=== PATIENT | female | born 1945 | race Caucasian/White ===

== ENCOUNTER → 2017-07-10 11:00 | Outpatient (CLI) | payer MEDICARE, OTHER, SELFPAY ==
--- NOTE | 2017-07-10 11:02 | XR_ITS ---
XR DEXA axial skeleton HISTORY: ITS.REASON: OSTEOPOROSIS ORDERING PHYSICIAN: Berna Jorgensen PATIENT AGE: 72 years COMPARISON: 06/27/2015 FINDINGS: The BMD measured at the Total left femoral neck is 0.610 g/cm squared with a T score of -3.2. This is considered Osteoporotic according to the World Health Organization criteria. Fracture risk is High. Treatment is advised. L1-L4 density has T score -0.4. The L-spine density is decreased by 4% and the hip density has decreased by 5% compared to the previous exam IMPRESSION: Osteoporosis with high fracture risk. Recommend treatment and follow-up exam June 2018
[2017-07-10 11:50] LABS: Basophils % 0.3 % (0.1-2.0); Eosinophils # 0.5 K/mm3 (0.0-0.4); Eosinophils % 4.3 % (0.1-12.0); Hematocrit 29.2 % (37.0-47.0); Hemoglobin 9.8 g/dL (12.2-16.2); Lymphocytes # 1.2 K/mm3 (0.7-4.5); Lymphocytes % 9.5 K/mm3 (10-50); Mean Corpuscular HGB Conc 33.5 g/dL (31.8-35.4); Mean Corpuscular Hemoglobin 32.2 pg (27.0-31.2); Mean Corpuscular Volume 95.9 fl (81-99); Mean Platelet Volume 7.2 fl (7.4-10.4); Monocytes # 0.5 K/mm3 (0.1-1.0); Monocytes % 3.8 % (1.7-9.3); Neutrophils % 82.1 % (37.0-80.0); Platelet Count 416 K/mm3 (142-424); Red Blood Count 3.05 M/mm3 (4.20-5.40); Red Cell Distribution Width 16.4 % (11.5-17.5); White Blood Count 12.2 K/mm3 (4.8-10.8)
[2017-07-10 13:23] LABS: Alanine Aminotransferase 11 U/L (12-78); Albumin Level 3.6 gm/dL (3.4-5.0); Albumin/Globulin Ratio 1.3 (1.1-1.8); Alkaline Phosphatase 115 U/L (46-116); Anion Gap 14.2 mEq/L (5-15); Aspartate Amino Transferase 10 U/L (15-37); Bilirubin,Total 0.3 mg/dL (0.2-1.0); Blood Urea Nitrogen 27 mg/dL (7-18); Calcium 8.9 mg/dL (8.5-10.1); Carbon Dioxide 27 mmol/L (21.0-32.0); Chloride 104 mmol/L (98-107); Chol/HDL Ratio 5.4 (1-3.5); Cholesterol 198 mg/dL (140-200); Estimated Glomerular Filt Rate 37 ml/min (>60); GFR (African American) 45 ML/MIN (>60); Globulin 2.7 gm/dl (1.3-3.2); Glucose 100 mg/dL (74-106); HDL Cholesterol 37 mg/dL (29-89); LDL Cholesterol 122 mg/dL (0-130); Potassium 4.2 mmoL/L (3.5-5.1); Sodium 141 mmol/L (136-145); Total Protein,Serum 6.3 gm/dL (6.4-8.2); Triglycerides 197 mg/dL (30-200); VLDL Cholesterol 39 mg/dL (0-40)
[2017-07-11 20:13] LABS: Vitamin D 25 Hydroxy 29.4 ng/mL (30.0-100.0)
== END ==
PROVIDERS: Family Provider Internal Medicine Adolescent Medicine; PCP Internal Medicine Adolescent Medicine; Visit Provider Nurse Practitioner Family
DX: M81.0 Age-related osteoporosis without current pathological fracture (principal); Z13.820 Encounter for screening for osteoporosis; E55.9 Vitamin D deficiency, unspecified; D64.9 Anemia, unspecified; I10 Essential (primary) hypertension
CPT/HCPCS: 36415; 77080; 80053; 80061; 82652; 85025

== ENCOUNTER → 2017-08-14 09:25 | Outpatient (CLI) | payer MEDICARE, OTHER, SELFPAY ==
--- NOTE | 2017-08-14 09:28 | XR_ITS ---
XR wrist RT min 3V HISTORY follow-up fracture ITS.REASON: RT distal radius fx ORDERING PHYSICIAN: Valentín Sheffield MD PATIENT AGE: 72 years Comparison: 07/12/2017 FINDINGS: There is a splint in place. There is a healing transverse fracture involving the distal radius with mild dorsal angulation of the distal fracture fragment. There is some osteosclerosis at the fracture site with callus formation dorsally. IMPRESSION: Healing nondisplaced fracture distal radius
--- NOTE | 2017-08-14 09:28 | XR_ITS ---
XR femur LT 2V CLINICAL INDICATION: Follow-up fracture ITS.REASON: FX medial condyle of femur ORDERING PHYSICIAN: Valentín Sheffield MD PATIENT AGE: 72 years Comparison: 07/12/2017 FINDINGS: There is a knee brace in place. There is an oblique fracture of the distal femur exiting at the central aspect of the lateral femoral condyle at the intercondylar region. The hip and proximal aspect of the femur have an unremarkable appearance IMPRESSION: Nondisplaced oblique fracture of the distal fibula at the lateral femoral condylar region not significantly changed
--- NOTE | 2017-08-14 10:31 | XR_ITS ---
XR knee LT 2V HISTORY: Follow-up fracture ITS.REASON: FRACTURE/CALL DR. SHEFFIELD BEFORE PATIENT IS OFF TAB ORDERING PHYSICIAN: Valentín Sheffield MD PATIENT AGE: 72 years COMPARISON: 07/12/2017 FINDINGS: Oblique fracture of the distal femur involving the base of the lateral femoral condyle the exiting at the intercondylar region is once again noted. No significant displacement. No significant change. Suprapatellar effusion is noted. IMPRESSION: Overall no change of the fracture of the lateral femoral condyle extending into the intercondylar region
== END ==
PROVIDERS: PCP Internal Medicine Adolescent Medicine; Visit Provider Orthopaedic Surgery
DX: S72.43 Fracture of medial condyle of femur (principal); S52.501A Unspecified fracture of the lower end of right radius, initial encounter for closed fracture
CPT/HCPCS: 73110; 73552; 73560

== ENCOUNTER → 2017-08-29 10:17 | Outpatient (CLI) | payer MEDICARE, OTHER, SELFPAY ==
--- NOTE | 2017-08-29 10:20 | XR_ITS ---
XR knee LT 2V HISTORY: Follow-up fracture ITS.REASON: LT MEDIAL CONDYLE FEMUR FX ORDERING PHYSICIAN: Valentín Sheffield MD PATIENT AGE: 72 years COMPARISON: None COMPARISON: 07/12/2017, 08/14/2017 FINDINGS: No change in the lateral femoral condylar fracture with extension into the intercondylar region.. There remains lucency in the intercondylar region. There is good alignment. IMPRESSION: Overall no change in the healing distal femur fracture involving the lateral femoral condyle extending into the intercondylar region
--- NOTE | 2017-08-29 10:20 | XR_ITS ---
XR wrist RT 2V HISTORY follow-up fracture ITS.REASON: RT WRIST FX ORDERING PHYSICIAN: Valentín Sheffield MD PATIENT AGE: 72 years Comparison: 08/14/2017 FINDINGS: A splint has been removed. There is a healing distal radial fracture with good alignment. There is some minimal dorsal angulation of the distal fracture fragment. Osteoarthritic changes involve the first metacarpocarpal joint. IMPRESSION: Healing distal radial fracture with good alignment and mild dorsal angulation of the distal fracture fragment
== END ==
PROVIDERS: PCP Internal Medicine Adolescent Medicine; Visit Provider Orthopaedic Surgery
DX: S72.43 Fracture of medial condyle of femur (principal); S52.501A Unspecified fracture of the lower end of right radius, initial encounter for closed fracture
CPT/HCPCS: 73100; 73560

== ENCOUNTER → 2017-09-11 09:37 | Outpatient (CLI) | payer MEDICARE, OTHER, SELFPAY ==
--- NOTE | 2017-09-11 09:39 | XR_ITS ---
XR knee LT 2V Ordering Physician: Valentín Sheffield MD Patient Age: 72 years: Female HISTORY: ITS.REASON: AP LATERAL VIEWS INCLUDE Fall in June with persistent knee pain TECHNIQUE: 2 view left knee COMPARISON : 08/29/2017 07/12/2017, 08/14/2017 FINDINGS: Stable healing distal femoral fracture. No change along the vague transverse fracture through the base of lateral femoral condylar fracture with extension into intercondylar region... Progressing healing at this fracture with slight increased density most evident at lateral. Stable position. There is also an oblique fracture through the medial aspect distal femoral metaphysis with this is not evident on plain film was seen on June 2007 extending to the notch IMPRESSION: Overall no change in the healing distal femur fracture involving the lateral femoral condyle extending tothe intercondylar region
== END ==
PROVIDERS: PCP Internal Medicine Adolescent Medicine; Visit Provider Orthopaedic Surgery
DX: S72.43 Fracture of medial condyle of femur (principal)
CPT/HCPCS: 73560

== ENCOUNTER → 2017-10-28 09:24 | Outpatient (CLI) | payer MEDICARE, OTHER, SELFPAY ==
--- NOTE | 2017-10-28 09:29 | XR_ITS ---
XR knee LT 2V HISTORY: Follow-up fracture ITS.REASON: LT MEDIAL CONDYLE FEMUR FX ORDERING PHYSICIAN: Valentín Sheffield MD PATIENT AGE: 72 years COMPARISON: 09/11/2017 FINDINGS: AP and lateral views are obtained demonstrates impaction of the lateral aspect of the distal femur at the base of the femoral condyle. The intercondylar fracture line is less apparent. There is generalized osteopenia. Vascular calcifications are also noted. IMPRESSION: Healing distal femur fracture nondisplaced
== END ==
PROVIDERS: PCP Internal Medicine Adolescent Medicine; Visit Provider Orthopaedic Surgery
DX: S72.43 Fracture of medial condyle of femur (principal)
CPT/HCPCS: 73560

== ENCOUNTER → 2017-12-10 09:23 | Outpatient (CLI) | payer MEDICARE, OTHER, SELFPAY ==
--- NOTE | 2017-12-10 09:27 | XR_ITS ---
XR wrist RT min 3V HISTORY follow-up fracture ITS.REASON: follow up on right nondisplaced fx ORDERING PHYSICIAN: Barrett Lorenzo MD PATIENT AGE: 72 years Comparison: 08/14/2017 FINDINGS: There is a band of increased density of the distal radius representing a healing fracture with mild dorsal angulation of the distal fracture fragment and the fracture line is less apparent than compared to the previous exam There is generalized osteopenia with osteoarthritic changes of the first metacarpal carpal joint. IMPRESSION: Healing nondisplaced distal radial fracture
--- NOTE | 2017-12-10 09:27 | XR_ITS ---
XR femur LT 2V CLINICAL INDICATION: Left femur pain, follow-up condylar fracture ITS.REASON: follow up ORDERING PHYSICIAN: Barrett Lorenzo MD PATIENT AGE: 72 years Comparison: 08/14/2017 FINDINGS: Lateral femoral condylar fracture line is less apparent. There is some deformity of the distal femur laterally from the old fracture as well as persistent cortical irregularity of the intercondylar region.. There is good alignment. IMPRESSION: Healing lateral femoral condylar fracture
[2017-12-10 10:24] LABS: Basophils # 0.1 K/mm3 (0-0.2); Basophils % 0.5 % (0.1-2.0); Eosinophils # 0.4 K/mm3 (0.0-0.4); Eosinophils % 3.6 % (0.1-12.0); Hematocrit 34.5 % (37.0-47.0); Hemoglobin 9.9 g/dL (12.2-16.2); Lymphocytes # 1.1 K/mm3 (0.7-4.5); Lymphocytes % 9.7 K/mm3 (10-50); Mean Corpuscular HGB Conc 28.6 g/dL (31.8-35.4); Mean Corpuscular Hemoglobin 28.2 pg (27.0-31.2); Mean Corpuscular Volume 98.7 fl (81-99); Mean Platelet Volume 7.2 fl (7.4-10.4); Monocytes # 0.4 K/mm3 (0.1-1.0); Monocytes % 3.6 % (1.7-9.3); Neutrophils # 9.3 K/mm3 (1.8-7.8); Neutrophils % 82.5 % (37.0-80.0); Platelet Count 463 K/mm3 (142-424); Red Cell Distribution Width 16.6 % (11.5-17.5); White Blood Count 11.3 K/mm3 (4.8-10.8)
[2017-12-10 11:43] LABS: Alanine Aminotransferase 11 U/L (12-78); Albumin Level 3.5 gm/dL (3.4-5.0); Albumin/Globulin Ratio 1.3 (1.1-1.8); Alkaline Phosphatase 100 U/L (46-116); Anion Gap 15.9 mEq/L (5-15); Aspartate Amino Transferase 8 U/L (15-37); Bilirubin,Total 0.4 mg/dL (0.2-1.0); Blood Urea Nitrogen 30 mg/dL (7-18); Calcium 8.8 mg/dL (8.5-10.1); Carbon Dioxide 25 mmol/L (21.0-32.0); Chloride 105 mmol/L (98-107); Creatinine,Serum 1.39 mg/dL (0.55-1.02); Estimated Glomerular Filt Rate 37 ml/min (>60); GFR (African American) 45 ML/MIN (>60); Globulin 2.6 gm/dl (1.3-3.2); Glucose 88 mg/dL (74-106); Potassium 3.9 mmoL/L (3.5-5.1); Sodium 142 mmol/L (136-145); Total Protein,Serum 6.1 gm/dL (6.4-8.2); Uric Acid 2.2 mg/dL (2.6-7.2)
[2017-12-12 06:43] LABS: Vitamin D 25 Hydroxy 36.1 ng/mL (30.0-100.0)
== END ==
PROVIDERS: Nurse Practitioner Family; PCP Internal Medicine Adolescent Medicine; Visit Provider Orthopaedic Surgery
DX: S52.501A Unspecified fracture of the lower end of right radius, initial encounter for closed fracture (principal); S72.43 Fracture of medial condyle of femur; D64.9 Anemia, unspecified; N20.0 Calculus of kidney; I10 Essential (primary) hypertension; E55.9 Vitamin D deficiency, unspecified
CPT/HCPCS: 36415; 73110; 73552; 80053; 82652; 84550; 85025

== ENCOUNTER → 2018-06-04 11:46 | Outpatient (CLI) | payer MEDICARE, OTHER, SELFPAY ==
[2018-06-04 12:38] LABS: Basophils # 0.1 K/mm3 (0-0.2); Basophils % 0.6 % (0.1-2.0); Eosinophils # 0.2 K/mm3 (0.0-0.4); Eosinophils % 1.8 % (0.1-12.0); Hematocrit 34.5 % (37.0-47.0); Hemoglobin 10.2 g/dL (12.2-16.2); Lymphocytes # 1.4 K/mm3 (0.7-4.5); Lymphocytes % 13.4 % (10-50); Mean Corpuscular HGB Conc 29.4 g/dL (31.8-35.4); Mean Corpuscular Hemoglobin 27.6 pg (27.0-31.2); Mean Corpuscular Volume 93.7 fl (81-99); Monocytes # 0.4 K/mm3 (0.1-1.0); Monocytes % 4.1 % (1.7-9.3); Neutrophils # 8.4 K/mm3 (1.8-7.8); Platelet Count 464 K/mm3 (142-424); Red Blood Count 3.69 M/mm3 (4.20-5.40); Red Cell Distribution Width 14.6 % (11.5-17.5); White Blood Count 10.6 K/mm3 (4.8-10.8)
[2018-06-04 15:25] LABS: Alanine Aminotransferase 14 U/L (12-78); Albumin Level 3.8 gm/dL (3.4-5.0); Albumin/Globulin Ratio 1.3 (1.1-1.8); Alkaline Phosphatase 106 U/L (46-116); Anion Gap 13.8 mEq/L (5-15); Aspartate Amino Transferase 6 U/L (15-37); Bilirubin,Total 0.2 mg/dL (0.2-1.0); Blood Urea Nitrogen 22 mg/dL (7-18); Calcium 8.7 mg/dL (8.5-10.1); Carbon Dioxide 28 mmol/L (21.0-32.0); Chloride 103 mmol/L (98-107); Creatinine,Serum 1.36 mg/dL (0.55-1.02); Estimated Glomerular Filt Rate 38 ml/min (>60); GFR (African American) 46 ML/MIN (>60); Globulin 2.9 gm/dl (1.3-3.2); Glucose 99 mg/dL (74-106); Potassium 3.8 mmoL/L (3.5-5.1); Sodium 141 mmol/L (136-145); Total Protein,Serum 6.7 gm/dL (6.4-8.2); Uric Acid 4.1 mg/dL (2.6-7.2)
[2018-06-05 23:13] LABS: Vitamin D 25 Hydroxy 27.8 ng/mL (30.0-100.0)
== END ==
PROVIDERS: Visit Provider Nurse Practitioner Family
DX: D64.9 Anemia, unspecified (principal); I10 Essential (primary) hypertension; N20.0 Calculus of kidney; E55.9 Vitamin D deficiency, unspecified
CPT/HCPCS: 36415; 80053; 82652; 84550; 85025

== ENCOUNTER → 2018-08-24 10:24 | Outpatient (CLI) | payer MEDICARE, OTHER, SELFPAY ==
[2018-08-24 12:08] LABS: Blood Urea Nitrogen 19 mg/dL (7-18); Creatinine,Serum 1.42 mg/dL (0.55-1.02); Estimated Glomerular Filt Rate 36 ml/min (>60); GFR (African American) 44 ML/MIN (>60)
== END ==
PROVIDERS: Visit Provider Thoracic Surgery (Cardiothoracic Vascular Surgery)
DX: I71.2 Thoracic aortic aneurysm, without rupture (principal)
CPT/HCPCS: 36415; 82565; 84520

== ENCOUNTER → 2018-08-27 10:09 | Outpatient (CLI) | payer MEDICARE, OTHER, SELFPAY ==
--- NOTE | 2018-08-27 10:38 | CT_ITS ---
CT angio chest COMPARISON: CT scan the chest without IV contrast 01/10/2017 HISTORY: Follow-up Evaluation of known thoracic aortic aneurysm TECHNIQUE: Multiple axial scans obtained from the thoracic inlet the hemidiaphragms after rapid injection of 100 cc of Optiray 350. Sagittal and coronal reformats were evaluated as well. FINDINGS: There is excellent vascular opacification. There is mild diffuse aneurysmal dilatation of the thoracic aorta, primarily aortic arch with the aortic arch measurement 4.5 cm in diameter unchanged the previous exam. The descending thoracic aorta at the level of the vinny measures 4.7 cm in diameter stable and unchanged from previous exam. There is no abnormal superior mediastinal or hilar lymphadenopathy. Lung windows show clear lung dillard bilaterally. There is minimal scarring or atelectasis at both lung bases. There is a stable 3 mm noncalcified nodule left lower lobe. There is a stable hypodense nodule of the left adrenal gland the CT number suggesting that it represents a lipoma. There is mild multilevel degenerative changes of the thoracic spine. There is no pleural fluid. There is mild generalized cardio megaly and overall cardiac size is stable and unchanged from the previous exam. IMPRESSION: Stable mild diffuse aneurysmal dilatation of the thoracic aorta, no acute chest pathology identified
== END ==
PROVIDERS: PCP Nurse Practitioner Family; Visit Provider Thoracic Surgery (Cardiothoracic Vascular Surgery)
DX: I71.2 Thoracic aortic aneurysm, without rupture (principal)
CPT/HCPCS: 71275; Q9967

== ENCOUNTER → 2020-04-14 13:37 | Outpatient (CLI) | payer MEDICARE, OTHER, SELFPAY ==
--- NOTE | 2020-04-14 14:04 | CT_ITS ---
PROCEDURE: CT CHEST WO CON Scanned chest routine wall is the CLINICAL INDICATION: DESCENDING AORTIC ANEURYSM Follow-up descending thoracic aortic aneurysm COMPARISON: CT [facility] CT angio chest from 08/27/2018 TECHNIQUE: Axial images obtained with sagittal and coronal reformats. All CT scans at the facility use one or more dose reduction, viz: automated exposure control, ma/kV adjustment per patient size (including targeted exams where dose is matched to indication, i.e. head), or iterative reconstruction technique. IV contrast was not utilized due to patient's renal function. FINDINGS: There is mild fusiform dilatation of the ascending aorta measuring up to 4.1 cm previously 3.9 cm. The aorta then becomes normal in caliber at the level of the great vessels measuring 3.2 cm. There is fusiform aneurysmal dilatation of the proximal descending thoracic aorta measuring up to 5 cm transverse previously 4.6 cm with an AP dimension of approximately 4.9 cm. In the mid aspect of the descending thoracic aorta laterally, there is an oval 3.3 x 1.3 cm area of soft tissue density. This may represent an area of focal dissection or an intramural hematoma. The aorta at this level measures nearly 6 cm in transverse dimension. Previously the aorta at this area measured 4.5 cm transverse. There are few scattered small mediastinal lymph nodes not significantly changed. There is a stable 5 mm nodule in the right upper lobe centrally image 38 series 3. There is mild thickening of the right major fissure laterally with some minimal nodularity laterally. There is a 5 mm noncalcified nodule in the extreme right lung base unchanged. A 6 mm noncalcified nodules present in the right lung base medially and may be within the fissure slightly more prominent from the previous study. There is a stable 4 mm nodule in the left lower lobe. No effusions. No infiltrates. IMPRESSION: 1. Mild fusiform dilatation of the ascending aorta at 4.1 cm. 2. Fusiform aneurysm of the descending thoracic aorta as described above. This is increased in size from the previous exam. There is now a 3.3 x 1.3 cm area of soft tissue density along the lateral aspect of the descending thoracic aorta. This was not present on the previous exam and may be due to an intramural hematoma. Cannot exclude the possibility of a contained dissection. In view of these findings, would suggest a CT aortogram with proper hydration of the patient before and afterwards. Alternatively, MRA could be performed in this patient with limited renal function. Berna Jorgensen the patient's provider was notified of the above findings by telephone 04/14/2020 at 6:20 p.m. 3. No change small bilateral pulmonary nodules. Dictated by: Bernardo Johnson MD 04/14/2020 18:32 Bernardo Johnson MD in [place] 04/14/2020 18:32
[2020-04-14 14:34] LABS: Blood Urea Nitrogen 45 mg/dl (7-17); Estimated Glomerular Filt Rate 24 ml/min (>60); GFR (African American) 29 ML/MIN (>60)
== END ==
PROVIDERS: PCP Nurse Practitioner Family; Visit Provider Nurse Practitioner Family
DX: I71.9 Aortic aneurysm of unspecified site, without rupture (principal)
CPT/HCPCS: 36415; 71250; 82565; 84520

== ENCOUNTER 2020-04-20 17:02 | Observation (INO) | payer MEDICARE, OTHER, SELFPAY ==
--- NOTE | 2020-04-20 17:28 | ECG_ITS ---
APPROVED REPORT Exam: Resting ECG HR:76 bpm ECG Measurements Heart Rate 76 AXES AZ 144 P 85 QRSd 86 QRS -10 QT 314 T 233 QTc 353 Conclusion Normal sinus rhythm ST & T wave abnormality, consider inferior ischemia ST & T wave abnormality, consider anterolateral ischemia Abnormal ECG Electronically signed by : Sergio Haley, 04/21/2020 20:36:17
[2020-04-20 17:29] VITALS: BP 92/70; PULSE 78; RESP 16; TEMP 36.6; O2SAT 98; BMI 21.9
--- NOTE | 2020-04-20 17:49 | XR_ITS ---
PROCEDURE: XR CHEST PORTABLE CLINICAL HISTORY: cough COMPARISON: CT CT CHEST WO CON from 04/14/2020 FINDINGS: Normal heart size. The aortic knob is enlarged consistent with aneurysm as seen on previous chest CT. The lungs are clear without infiltrates, suspicious nodules, or pleural effusions. There are old left-sided rib fractures. IMPRESSION: Thoracic aortic aneurysm Dictated by: Bernardo Johnson MD 04/21/2020 05:32 Bernardo Johnson MD in [place] 04/21/2020 05:32
[2020-04-20 17:56] LABS: Basophils # 0.1 K/mm3 (0-0.2); Basophils % 0.3 % (0.1-2.0); Eosinophils # 0.4 K/mm3 (0.0-0.4); Eosinophils % 2.3 % (0.1-12.0); Hematocrit 39.8 % (37.0-47.0); Lymphocytes % 12.4 % (10-50); Mean Corpuscular HGB Conc 30.2 g/dL (31.8-35.4); Mean Corpuscular Hemoglobin 32.3 pg (27.0-31.2); Mean Platelet Volume 8.4 fl (7.4-10.4); Monocytes # 0.6 K/mm3 (0.1-1.0); Monocytes % 3.5 % (1.7-9.3); Neutrophils % 81.5 % (37.0-80.0); Platelet Count 410 K/mm3 (142-424); Red Blood Count 3.72 M/mm3 (4.20-5.40); Red Cell Distribution Width 16.3 % (11.5-17.5); White Blood Count 15.9 K/mm3 (4.8-10.8)
[2020-04-20 17:57] LABS: Chloride 102 mmol/L (98-107); Potassium 3.2 mmoL/L (3.5-5.1); Sodium 137 mmol/L (136-145)
--- NOTE | 2020-04-20 17:58 | CT_ITS ---
PROCEDURE: CT ABDOMEN PELVIS WO CON CLINICAL INDICATION: pain vomiting Abdominal pain and vomiting COMPARISON: CT ABDPELW/O CT ABD PELVIS W/O CONTRAST from 08/31/2015 TECHNIQUE: Axial images obtained with sagittal and coronal reformats. All CT scans at the facility use one or more dose reduction, viz: automated exposure control, ma/kV adjustment per patient size (including targeted exams where dose is matched to indication, i.e. head), or iterative reconstruction technique. FINDINGS: LOWER THORAX: Atelectatic or fibrotic changes are present in the lingula and left lower lobe and right lung base. Tortuosity and mild ectasia involves the descending thoracic aorta ABDOMEN & PELVIS: Prior cholecystectomy. There is a small hiatal hernia. Liver has an unremarkable appearance. There is a hypodensity involving the anterior aspect of the spleen at 1.6 cm not significantly changed and may be due to a hemangioma. Faint calcification noted in the superior aspect. Mildly prominent left adrenal gland not significantly changed. Unremarkable right adrenal gland. Unremarkable pancreas. There are bilateral renal cortical cysts. Nonobstructing 3 mm stone is present in the lower pole of the left kidney. In the upper pole of the right kidney there is a hyperdense nodule at 9 mm probably not significantly changed. No intestinal obstruction or free air. No evidence of appendicitis or diverticulitis. Submucosal fat deposition noted throughout the colon. This is nonspecific and may be seen with infectious/inflammatory change or increased body fat content. Prior hysterectomy. No acute bony findings. Mild lumbar curvature convex right. IMPRESSION: 1. No acute abdominal or pelvic findings. 2. Incidental nonacute findings as described above. Dictated by: Bernardo Johnson MD 04/21/2020 06:03 Bernardo Johnson MD in [place] 04/21/2020 06:03
[2020-04-20 17:59] LABS: MANUAL DIFFERENTIAL MANUAL DIFFERENTIAL (MANUAL DIFF)
[2020-04-20 18:00] LABS: Alanine Aminotransferase 20 U/L (12-78); Alkaline Phosphatase 197 U/L (38-126); Anion Gap 13.2 mEq/L (5-15); Aspartate Amino Transferase 30 U/L (14-36); Bilirubin,Total 0.5 mg/dl (0.2-1.3); Blood Urea Nitrogen 48 mg/dl (7-17); Calcium 9.1 mg/dl (8.4-10.2); Carbon Dioxide 25 mmol/L (22.0-30.0); Creatinine Clearance Estimated 21 mL/min (50-200); Estimated Glomerular Filt Rate 24 ml/min (>60); GFR (African American) 29 ML/MIN (>60); Glucose 136 mg/dl (74-100); Lipase 405 U/L (23-300)
[2020-04-20 18:01] LABS: Albumin Level 3.5 g/dl (3.5-5.0); Albumin/Globulin Ratio 1.3 (1.1-1.8); Globulin 2.7 g/dL (1.3-3.2); Total Protein,Serum 6.2 g/dl (6.3-8.2)
[2020-04-20 18:07] LABS: Lymphocytes % 17 % (10-50); Monocytes % 2 % (2-9); Neutrophils % 81 % (42-76); Total Cells Counted 100
[2020-04-20 18:08] LABS: Anisocytosis 1+; Macrocytosis 1+; Platelet Estimate Normal
[2020-04-20 18:13] LABS: Troponin I 0.05 ng/ml (0.00-0.034)
--- NOTE | 2020-04-20 18:13 | HMH.EDNVD ---
ED Disposition Clinical Impression: Acute kidney injury, Acute hypokalemia Acute pancreatitis Qualifiers: Pancreatitis type: other Acute pancreatitis complication: no infection or necrosis Qualified Code(s): K85.80 - Other acute pancreatitis without necrosis or infection Disposition: Admitted As Inpatient Condition on Discharge: Fair Instructions: DI for Diarrhea and Traveler's Diarrhea -- Adult, DI for Diarrhea and Traveler's Diarrhea -- Child, DI for Nausea -- Adult, DI for Nausea -- Child Referrals: Berna Jorgensen APRN [Primary Care Provider] - - Critical Care Critical Care Time: No Attestation: On 04/20/20, the high probability of a clinically significant, sudden or life threatening deterioration of the following system(s) required my full and direct attention, intervention and personal management. The time I documented below is in addition to time spent performing reported procedures but includes the following listed in this critical care notation. Medical Decision Making - Medical Records Medical records reviewed: Yes: I reviewed the patient's medical records. - Enrique Inquiry Pt receiving controlled substance: No Vital Signs: 04/20/20 17:29 04/20/20 18:33 Temperature 98 F Temperature Source Oral Pulse Rate [Right] 78 64 Respiratory Rate 16 Blood Pressure [Right Arm] 92/70 L 139/65 Blood Pressure Mean [Right Arm] 77 89 Blood Pressure Source [Right Arm] Automatic Cuff Automatic Cuff Blood Pressure Position [Right Arm] Sitting Sitting 02 Sat by Pulse Oximetry 98 94 L Oxygen Delivery Method Room Air Room Air - Lab Data Lab Results 04/20/20 17:00: WBC 15.9 H, RBC 3.72 L, Hgb 12.0 L, Hct 39.8, MCV 107.0 H, MCH 32.3 H, MCHC 30.2 L, RDW 16.3, Plt Count 410, MPV 8.4, Neut % (Auto) 81.5 H, Lymph % (Auto) 12.4, Angelina % (Auto) 3.5, Eos % (Auto) 2.3, Baso % (Auto) 0.3, Neut # (Auto) 13.0 H, Lymph # (Auto) 2.0, Angelina # (Auto) 0.6, Eos # (Auto) 0.4, Baso # (Auto) 0.1, Total Counted 100, Neutrophils % (Manual) 81 H, Lymphocytes % (Manual) 17, Monocytes % (Manual) 2, Platelet Estimate Normal, Anisocytosis 1+, Macrocytosis 1+ 04/20/20 17:00: Sodium 137, Potassium 3.2 L, Chloride 102, Carbon Dioxide 25, Anion Gap 13.2, BUN 48 H, Creatinine 2.00 H, Estimated Creat Clear 21, Estimated GFR 24 L, Est GFR ( Amer) 29 L, Glucose 136 H, Calcium 9.1, Total Bilirubin 0.5, AST 30, ALT 20, Alkaline Phosphatase 197 H, Troponin I 0.05 H, Total Protein 6.2 L, Albumin 3.5, Globulin 2.7, Albumin/Globulin Ratio 1.3, Lipase 405 H 04/20/20 18:25: Lactate 0.9 04/20/20 19:33: Urine Color Yellow, Urine Appearance Clear, Urine pH 5.0, Ur Specific Mathis 1.025, Urine Protein Negative, Urine Glucose (UA) Negative, Urine Ketones Negative, Urine Blood Negative, Urine Nitrate Negative, Urine Bilirubin Negative, Urine Urobilinogen 0.2, Ur Leukocyte Esterase Negative, Urine RBC None, Urine WBC 3-5, Ur Squamous Epith Cells 5-10, Urine Bacteria 2+ Result diagrams: 04/20/20 17:00 04/20/20 17:00 Orders (Tests/Meds): ED MEDICATIONS Generic Name Dose Route Start Last Admin Trade Name Freq PRN Reason Stop Dose Admin Sodium Chloride 1,000 mls @ 999 mls/hr 04/20/20 18:00 04/20/20 18:51 Sod Chlor 0.9% 1000ml Bag IV 04/20/20 19:00 999 mls/hr .Q1H1M MOMO Administration Discontinued Medications Generic Name Dose Route Start Last Admin Trade Name Freq PRN Reason Stop Dose Admin Ondansetron HCl 4 mg 04/20/20 17:49 04/20/20 18:50 Ondansetron 4mg/2ml Vial IV 04/20/20 17:50 4 mg ONCE ONE Administration Potassium Chloride 40 meq 04/20/20 19:29 04/20/20 19:34 Potassium Chloride 20meq Tab PO 04/20/20 19:30 40 meq ONCE ONE Administration ORDERS Category Date Time Status CT abdomen pelvis wo con Stat Cat Scan 04/20/20 17:58 Taken XR chest portable Stat Exams 04/20/20 17:49 Taken Full Resp Panel w/COVID ([facility]) Routine Lab 04/20/20 19:35 Received Troponin I Q3H Lab 04/20/20 21:00 Ordered Troponin I Q
[2020-04-20 18:33] VITALS: BP 139/65; PULSE 64; O2SAT 94
[2020-04-20 18:43] LABS: Lactic Acid 0.9 mmol/L (0.7-2.1)
[2020-04-20 19:33] LABS: Microscopic, Urine URINE MICROSCOPIC (MICROSCOPIC)
[2020-04-20 19:35] LABS: Appearance,Urine CLEAR (Clear); Bilirubin,Urine Negative (Negative); Blood, Urine Negative (Negative); Color,Urine YELLOW (Yellow); Glucose,Urine (UA) Negative (Negative); Ketones,Urine Negative (Negative); Leukocyte Esterase,Urine Negative (Negative); Nitrate,Urine Negative (Negative); Protein,Urine Negative (Negative); Specific Gravity, Urine 1.025 (1.005-1.030); Urobilinogen,Urine 0.2 EU/dl (0.2)
[2020-04-20 19:39] LABS: Adenovirus,PCR Not Detected (NotDetected); Bordetella Pertussis Not Detected (NotDetected); Chlamydophila Pneumoniae, PCR Not Detected (NotDetected); Coronavirus 19, PCR Not Detected (NotDetected); Coronavirus 229E Not Detected (NotDetected); Coronavirus NL63 Not Detected (NotDetected); Coronavirus OC43 Not Detected (NotDetected); Coronovirus HKU1,PCR Not Detected (NotDetected); Human Metapneumovirus Not Detected (NotDetected); Influenza A, PCR Not Detected (NotDetected); Influenza AH1, 2009 Not Detected (NotDetected); Influenza AH1, PCR Not Detected (NotDetected); Influenza AH3,PCR Not Detected (NotDetected); Influenza B, PCR Not Detected (NotDetected); Mycoplasma Pneumoniae, PCR Not Detected (NotDetected); Parainfluenza 1, PCR Not Detected (NotDetected); Parainfluenza 2, PCR Not Detected (NotDetected); Parainfluenza 3, PCR Not Detected (NotDetected); Parainfluenza 4, PCR Not Detected (NotDetected); Respiratory Syncytial Virus Not Detected (NotDetected); Rhinovirus/Enterovirus Not Detected (NotDetected)
[2020-04-20 19:44] LABS: Bacteria,Urine 2+ /lpf
--- NOTE | 2020-04-20 19:47 | PC.NURSE ---
Dr. Choi on the phone with Dr. Amezcua for admission
--- NOTE | 2020-04-20 19:47 | PC.NURSE ---
Notified supervisor mechanic boilermaking, Sho Rivera, for admission and bed assignment.
--- NOTE | 2020-04-20 21:27 | PC.NURSE ---
Called 2nd floor, s/w Kevin RN and notified pt is ready for transfer to floor and will give bedside report. Covid swab is neg.
[2020-04-20 21:36] LABS: Troponin I 0.06 ng/ml (0.00-0.034)
[2020-04-20 21:55] VITALS: BP 135/65; PULSE 86; RESP 16; TEMP 37; O2SAT 97
--- NOTE | 2020-04-20 21:57 | PC.NURSE ---
PT ARRIVED TO FLOOR VIA STRETCHER FROM ED W/STAFF @ [id number].
[2020-04-20 22:18] VITALS: BP 141/76; PULSE 74; RESP 15; TEMP 36.9; O2SAT 98; BMI 20.6
[2020-04-20 22:57] VITALS: PULSE 70
[2020-04-21] VITALS (9 sets, daily range): BP systolic 122–167; BP diastolic 53–70; PULSE 67–84; RESP 16–18; TEMP 36.7–37.1; O2SAT 92–98; BMI 20.5
[2020-04-21 00:57] LABS: Troponin I 0.07 ng/ml (0.00-0.034)
--- NOTE | 2020-04-21 04:46 | PC.NURSE ---
shift summary pts lung sound are clear with sats maintained 90% or higher on room air with a rate ranging from 16-18. pt is alert and oriented X4. pt had a complaint of nausea once which was relieved with antiemetic. pt has a pavon in place with clear yellow in color urine.
--- NOTE | 2020-04-21 06:49 | HMH.HP ---
*Admission Date: 04/20/20 *Chief complaint: nausea, vomiting, abdominal pain *History of present illness: 75-year-old female who presented to the ER because of worsening abdominal pain, nausea, dehydration. Feeling weak at home. States she has been unable to eat for 1 to 2 weeks. Symptoms of gotten worse over the past few days. On presentation to the ER, found to have acute kidney injury, elevated lipase, and dehydration. Imaging of her abdomen initially read as benign by the ER however does demonstrate her thoracic aortic aneurysm. Remained stable overnight on IV fluids with no further vomiting. Tolerating room air, afebrile. On assessment this morning she does mention her known aneurysm. Discussed her recent imaging performed last week that showed concern for intramural hematoma versus dissection. Reports back pain that has been going on for about the past month. Is tender in her muscles but also reports that it is deeper in her chest. Generally her nausea occurs after she eats and she feels like things get stuck and then come back up a short time later. This morning she denies mikey nausea but continues to hurt in her upper abdomen. Denies blood in her stool. Making urine, Rodriguez in place. Reviewed labs this morning with improvement in her creatinine to 1.6. Discussed case with radiology, given current symptoms, would benefit from CT angiogram of thoracic and abdominal aorta. Current creatinine level amenable to CT with contrast. Patient was scheduled from the outpatient setting with CT surgery at [facility] for Friday. Discussed with her today that given her current symptoms, she may necessitate transfer if this is related to her aneurysm. She is amenable to this. She had concern, though does not appear in any of the ER documentation, that this may be her aneurysm. Unclear how much she mentioned of her recent work-up and referral for aneurysm [facility] History I have reviewed the patient's past medical history: Yes Medical History: Reports:: Aneurysm, Gastroesophageal Reflux Disease(GERD), Hypertension Denies:: Cancer, Diabetes Mellitus Type 1, Diabetes Mellitus Type 2, MRSA *Have you ever received a pneumonia vaccine?: Yes *Have you received a flu vaccine this season?: Yes Other Medical History: Reports: Arthritis, Cataracts Laterality Cases: Bilateral: Tonsillectomy Other Surgeries: Yes: Appendectomy, Cholecystectomy, Colonoscopy, EGD, Hysterectomy-Total, Other Amputation: No Fractures: Yes - *Social History Last grade of school completed: Advanced degree Smoking Status: Current every day smoker Tobacco Type: cigarettes # Packs/Day (cigarettes): 1 Alcohol Intake: former Alcohol Intake Frequency:: holidays/special occasions only Substance Use Type: denies use *Occupational Status:: disabled Housing: house Household Members: none *Travel in the last 8 weeks: None Family Hx:: Diabetes, Heart Attack, Hypertension Review of Systems - Review of Systems Review of systems:: pertinent systems reviewed and negative unless documented below (14 point review of systems performed, pertinent positives and negatives as per HPI) - *Neurologic Denies headache(s) Meds Home Medications Medication Instructions Recorded Confirmed Type Amlodipine Besylate [Norvasc 5mg 5 mg PO DAILY 07/12/17 04/20/20 History tablet] Aspirin [Aspirin 81mg chewable 81 mg PO DAILY 07/12/17 04/20/20 History tab] Cetirizine HCl [Zyrtec] 10 mg PO DAILY 07/12/17 04/20/20 History Duloxetine HCl [Cymbalta 30mg 30 mg PO DAILY 07/12/17 04/20/20 History capsule] bisoprolol 10 1 tab PO DAILY 08/14/17 04/21/20 History mg-hydrochlorothiazide 6.25 mg tablet hydrocodone 10 mg-acetaminophen 1 - 2 tab PO TIDP PRN tab 08/14/17 04/21/20 History 325 mg tablet Calcium Phosphate Dibas/Vit D3 1 each PO DAILY 04/20/20 04/20/20 History [Vitamin M3-[id number] Tablet] Ergocalciferol (Vitamin D2) 50,000 units PO WEEKLY 04/20/20 04/20/20 Histor
--- NOTE | 2020-04-21 07:23 | HMH.PHAVTE ---
[facility] VTE Monitoring - Patient Demographics Admission date: 04/20/20 Report Date: 04/21/20 Time: 07:23 Allergies/Adverse Reactions: Patient Allergies ciprofloxacin [From Cipro] Allergy (Intermediate, Verified 04/20/20 17:36) I-RASH lisinopril Allergy (Intermediate, Verified 04/20/20 17:36) I-RASH, GI UPSET oxaprozin Allergy (Intermediate, Verified 04/20/20 17:36) I-RASH tramadol Allergy (Intermediate, Verified 04/20/20 17:36) HEADACHE venlafaxine Allergy (Unknown, Verified 04/20/20 17:36) Unknown allergy reaction Height: 1.68 m Weight: 58.06 kg Patient Problems: Current Active Problems Acute pancreatitis (Acute) Acute kidney injury (Acute) Acute hypokalemia (Acute) Thoracoabdominal aortic aneurysm (TAAA) (Acute) - VTE Risk Labs: VTE Related Lab Results Hgb 12.0 g/dL (12.2-16.2) L 04/20/20 17:00 Hct 39.8 % (37.0-47.0) 04/20/20 17:00 Plt Count 410 K/mm3 (142-424) 04/20/20 17:00 BUN 48 mg/dl (7-17) H 04/20/20 17:00 Creatinine 2.00 mg/dl (0.52-1.04) H 04/20/20 17:00 Estimated Creat Clear 21 mL/min (50-200) 04/20/20 17:00 Was VTE Risk Assessment Performed: Yes VTE Risk Level: Moderate Risk - Prophylaxis VTE Prophylaxis Ordered?: Yes Types of VTE Prophylaxis: TEDS Knee High, Pharmacological Location of Applied Device: Bilateral Lower Extremeties Pharmacologic Type: Enoxaparin
[2020-04-21 07:25] LABS: Basophils % 0.3 % (0.1-2.0); Eosinophils # 0.3 K/mm3 (0.0-0.4); Eosinophils % 2.7 % (0.1-12.0); Hematocrit 33.5 % (37.0-47.0); Lymphocytes # 1.3 K/mm3 (0.7-4.5); Lymphocytes % 12.3 % (10-50); Mean Corpuscular HGB Conc 29.3 g/dL (31.8-35.4); Mean Corpuscular Hemoglobin 32.6 pg (27.0-31.2); Mean Corpuscular Volume 111.2 fl (81-99); Mean Platelet Volume 7.9 fl (7.4-10.4); Monocytes # 0.5 K/mm3 (0.1-1.0); Monocytes % 4.6 % (1.7-9.3); Neutrophils # 8.5 K/mm3 (1.8-7.8); Neutrophils % 80.1 % (37.0-80.0); Platelet Count 321 K/mm3 (142-424); Red Blood Count 3.02 M/mm3 (4.20-5.40); Red Cell Distribution Width 16.1 % (11.5-17.5); White Blood Count 10.6 K/mm3 (4.8-10.8)
[2020-04-21 07:33] LABS: Alanine Aminotransferase 11 U/L (12-78); Albumin Level 2.7 g/dl (3.5-5.0); Albumin/Globulin Ratio 1.2 (1.1-1.8); Alkaline Phosphatase 151 U/L (38-126); Anion Gap 10.7 mEq/L (5-15); Aspartate Amino Transferase 25 U/L (14-36); Bilirubin,Total 0.3 mg/dl (0.2-1.3); Blood Urea Nitrogen 39 mg/dl (7-17); Carbon Dioxide 23 mmol/L (22.0-30.0); Chloride 109 mmol/L (98-107); Creatinine Clearance Estimated 28 mL/min (50-200); Estimated Glomerular Filt Rate 32 ml/min (>60); GFR (African American) 38 ML/MIN (>60); Globulin 2.2 g/dL (1.3-3.2); Glucose 85 mg/dl (74-100); Potassium 3.7 mmoL/L (3.5-5.1); Sodium 139 mmol/L (136-145); Total Protein,Serum 4.9 g/dl (6.3-8.2)
--- NOTE | 2020-04-21 07:45 | HMH.PHAINT ---
MEDICATION RECONCILIATION COMPLETED ON PATIENT USING EXTERNAL FILL HISTORY FROM PHARMACY. -FRANCESCO ELLSWORTH, MAZIND
[2020-04-21 07:54] LABS: Hemoglobin 9.8 g/dL (12.2-16.2)
--- NOTE | 2020-04-21 09:00 | CT_ITS ---
PROCEDURE: CT ANGIO CHEST CLINCIAL INDICATION: aneurysm, dissection? Chest pain, thoracic aortic aneurysm evaluation COMPARISON: CT CT ABDOMEN PELVIS WO CON from 04/20/[address] ANGIO ABDOMEN from 04/21/2020 TECHNIQUE: IV Contrast: 70ML Isovue 370 Axial images obtained with sagittal and coronal reformats. All CT scans at the facility use one or more dose reduction, viz: automated exposure control, ma/kV adjustment per patient size (including targeted exams where dose is matched to indication, i.e. head), or iterative reconstruction technique. FINDINGS: CTA thoracic aorta: There is aneurysmal dilatation of the descending thoracic aorta. Proximally the aorta measures 4.8 cm. Mural thrombus is present in the proximal descending thoracic aorta laterally. There is focal dilatation of the mid aspect of the descending thoracic aorta measuring 5.7 cm in transverse dimension. There is focal widening of the mid aspect of the descending thoracic aorta. Moderate amount of mural thrombus is present laterally. This has a similar appearance compared to 04/14/2020. This does not represent a local dissection.. The aorta just distal to this region measures 3.5 cm in transverse dimension. The great vessels of the aortic arch show no significant stenosis. There is no evidence of aortic dissection. CTA abdominal aorta: The celiac and SMA have an unremarkable appearance. The RUPALI is very small. There is greater than 50 percent stenosis of the ostium of the right renal artery. No evidence of abdominal aortic aneurysm. Moderate atheromatous changes involve the distal abdominal aorta and common iliacs. There is 40 percent stenosis involving the ostium of the right common iliac artery. Non angiographic scattered areas of scarring noted in the lungs. No lobar consolidation or collapse. There is a small hiatal hernia. The adrenal glands are somewhat prominent but maintain and adrenal form shape and may be due to adenomas. There are small bilateral renal cortical cysts. Fatty deposition noted within the submucosal colon involving the ascending and transverse colon. This is nonspecific and may be seen with fat deposition from weight gain or chronic inflammatory changes. There is mild thickening of the descending and sigmoid colon which could be due to nondistention or colitis. IMPRESSION: 1. 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 The focal area protrusion along the lower descending thoracic aorta laterally is felt to be related to asymmetric mural thrombus which has developed since an older study of 08/27/2018. NO EVIDENCE OF AORTIC DISSECTION. 2. Atheromatous changes of the lower abdominal aorta and iliac vessels 3. Possible colitis Dictated by: Bernardo Johnson MD 04/21/2020 12:54 Bernardo Johnson MD in [place] 04/21/2020 12:54
--- NOTE | 2020-04-21 18:08 | [facility]H.DCSUM ---
General - General Admission date:: 04/20/20 Discharge date: 04/21/20 HPI HPI: 75-year-old female who presented to the ER because of worsening abdominal pain, nausea, dehydration. Feeling weak at home. States she has been unable to eat for 1 to 2 weeks. Symptoms of gotten worse over the past few days. On presentation to the ER, found to have acute kidney injury, elevated lipase, and dehydration. Imaging of her abdomen initially read as benign by the ER however does demonstrate her thoracic aortic aneurysm. Remained stable overnight on IV fluids with no further vomiting. Tolerating room air, afebrile. On assessment this morning she does mention her known aneurysm. Discussed her recent imaging performed last week that showed concern for intramural hematoma versus dissection. Reports back pain that has been going on for about the past month. Is tender in her muscles but also reports that it is deeper in her chest. Generally her nausea occurs after she eats and she feels like things get stuck and then come back up a short time later. This morning she denies mikey nausea but continues to hurt in her upper abdomen. Denies blood in her stool. Making urine, Rodriguez in place. Reviewed labs this morning with improvement in her creatinine to 1.6. Discussed case with radiology, given current symptoms, would benefit from CT angiogram of thoracic and abdominal aorta. Current creatinine level amenable to CT with contrast. Patient was scheduled from the outpatient setting with CT surgery at [facility] for Friday. Discussed with her today that given her current symptoms, she may necessitate transfer if this is related to her aneurysm. She is amenable to this. She had concern, though does not appear in any of the ER documentation, that this may be her aneurysm. Unclear how much she mentioned of her recent work-up and referral for aneurysm Hospital Course Hospital Course: 75-year-old female admitted for nausea, vomiting, MIRANDA. Suspected pancreatitis. Additionally however found to have significant aortic aneurysm. Was recently assessed in the outpatient setting and set up for follow-up with CT surgery at [facility] on Friday. Given worsening GI symptoms, and findings on repeat CTA with aneurysm of 6 cm of the thoracic aorta, decision made to transfer patient to higher level of care for further management. Contacted [facility], they graciously accepted her for transfer and further care. Remained n.p.o. during hospitalization. Tolerated IV fluids. Required no transfusions. Did show a decrease in her hemoglobin but also had delusional effect with her platelets and white cell count. Making good urine. Afebrile. Hemodynamically stable. Transfer to [facility] for more definitive care. CTA findings: IMPRESSION: 1. 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 The focal area protrusion along the lower descending thoracic aorta laterally is felt to be related to asymmetric mural thrombus which has developed since an older study of 08/27/2018. NO EVIDENCE OF AORTIC DISSECTION. 2. Atheromatous changes of the lower abdominal aorta and iliac vessels 3. Possible colitis Objective Vital signs: Temp Pulse Resp BP Pulse Ox 98.6 F 70 17 135/53 L 98 04/21/20 15:37 04/21/20 16:00 04/21/20 15:37 04/21/20 15:37 04/21/20 15:37 Narrative: - Constitutional mild distress, chronically ill appearing - *Routine HEENT Exam Head: Present: normocephalic Eye: Present: EOMI, PERRL ENT: Present: mucous membranes moist - *Routine Neck Exam Present: supple. Absent: lymphadenopathy - *Routine Respiratory Exam Present: CTA bilaterally - *Routine Cardiovascular Exam Present: RRR. Absent: murmur - *Routine Abdominal Exam Present: soft, normoactive bowel sounds, tenderness (Midepigastric tenderness, pulsatile lesion mid abdomen) - *Routine Ext
[2020-04-21 18:09] LABS: Basophils % 0.3 % (0.1-2.0); Eosinophils # 0.2 K/mm3 (0.0-0.4); Hematocrit 31.8 % (37.0-47.0); Hemoglobin 9.4 g/dL (12.2-16.2); Lymphocytes # 1.5 K/mm3 (0.7-4.5); Lymphocytes % 18.3 % (10-50); Mean Corpuscular HGB Conc 29.7 g/dL (31.8-35.4); Mean Corpuscular Hemoglobin 32.4 pg (27.0-31.2); Mean Corpuscular Volume 108.9 fl (81-99); Monocytes # 0.4 K/mm3 (0.1-1.0); Monocytes % 4.4 % (1.7-9.3); Neutrophils # 6.3 K/mm3 (1.8-7.8); Neutrophils % 75.1 % (37.0-80.0); Platelet Count 284 K/mm3 (142-424); Red Blood Count 2.92 M/mm3 (4.20-5.40); Red Cell Distribution Width 16.1 % (11.5-17.5); White Blood Count 8.4 K/mm3 (4.8-10.8)
[2020-04-21 18:15] LABS: Chloride 109 mmol/L (98-107); Potassium 3.6 mmoL/L (3.5-5.1); Sodium 139 mmol/L (136-145)
[2020-04-21 18:18] LABS: Anion Gap 8.6 mEq/L (5-15); Blood Urea Nitrogen 33 mg/dl (7-17); Calcium 8.1 mg/dl (8.4-10.2); Carbon Dioxide 25 mmol/L (22.0-30.0); Creatinine Clearance Estimated 30 mL/min (50-200); Estimated Glomerular Filt Rate 34 ml/min (>60); GFR (African American) 41 ML/MIN (>60); Glucose 81 mg/dl (74-100)
--- NOTE | 2020-04-21 18:24 | PC.NURSE ---
Pt has rested well this shift. Pt has c/o abd pain x1 this shift and was medicated per APR. Report called to Lee Ann at [facility] @ 1799. Pt will be going to [facility], room 636. No other acute changes or complaints at this time.
== END 2020-04-21 19:47 | disposition short-term general hospital (02) ==
LOC: ER 19:46 → 2ND 21:44
PROVIDERS: Internal Medicine Adolescent Medicine; Admitting Provider Family Medicine; Emergency Provider Emergency Medicine; PCP Nurse Practitioner Family; Visit Provider Internal Medicine Adolescent Medicine
DX: I71.6 Thoracoabdominal aortic aneurysm, without rupture (principal); Z88.8 Allergy status to other drugs, medicaments and biological substances; Z79.899 Other long term (current) drug therapy; E86.0 Dehydration; Z72.0 Tobacco use; E87.6 Hypokalemia; K85.90 Acute pancreatitis without necrosis or infection, unspecified; N17.9 Acute kidney failure, unspecified; M10.9 Gout, unspecified; I10 Essential (primary) hypertension; Z79.891 Long term (current) use of opiate analgesic; Z88.1 Allergy status to other antibiotic agents
CPT/HCPCS: 36415; 71045; 71275; 74175; 74176; 80048; 80053; 81001; 83605; 83690; 84484; 85007; 85025; 86850; 87086; 87581; 87633; 87798; 93005; 96365; 96375; 99284; G0378; J2405; Q9967

== ENCOUNTER 2020-05-09 09:06 | Outpatient (CLI) | payer MEDICARE, OTHER, SELFPAY ==
[2020-05-09] VITALS (22 sets, daily range): BP systolic 133–172; BP diastolic 61–81; PULSE 68–80; RESP 18–20; TEMP 35.9–36.9; O2SAT 18–95; BMI 22.2
[2020-05-09 09:51] LABS: Hematocrit 25.5 % (37.0-47.0)
[2020-05-09 09:53] LABS: Hemoglobin 7.3 g/dL (12.2-16.2)
[2020-05-09 17:09] LABS: Hematocrit 30.6 % (37.0-47.0)
[2020-05-09 18:25] LABS: Hemoglobin 9.6 g/dL (12.2-16.2)
--- NOTE | 2020-05-10 13:39 | DIET.NUTRFU ---
Attempted to contact pt for nutritional consult for first chemotherapy dose. No answer, VM left explaining nutritional services and encouraging pt to reach out through telephone and/or at next infusion with any nutrition questions/concerns. Will continue to try to reach pt.
== END 2020-05-09 16:33 | disposition home or self-care (01) ==
LOC: INF 09:06
PROVIDERS: PCP Nurse Practitioner Family; Visit Provider Nurse Practitioner Family
DX: D62 Acute posthemorrhagic anemia (principal)
CPT/HCPCS: 36430; 85014; 85018; 86850; P9016

== ENCOUNTER → 2020-10-12 11:28 | Outpatient (CLI) | payer MEDICARE, OTHER, SELFPAY ==
[2020-10-12 12:16] LABS: Basophils # 0.1 K/mm3 (0-0.2); Basophils % 0.5 % (0.1-2.0); Eosinophils # 0.2 K/mm3 (0.0-0.4); Eosinophils % 1.6 % (0.1-12.0); Hematocrit 38.1 % (37.0-47.0); Hemoglobin 11.2 g/dL (12.2-16.2); Lymphocytes # 1.2 K/mm3 (0.7-4.5); Lymphocytes % 12.1 % (10-50); Mean Corpuscular HGB Conc 29.3 g/dL (31.8-35.4); Mean Corpuscular Hemoglobin 32.4 pg (27.0-31.2); Mean Corpuscular Volume 110.7 fl (81-99); Mean Platelet Volume 8.6 fl (7.4-10.4); Monocytes # 0.4 K/mm3 (0.1-1.0); Monocytes % 4.1 % (1.7-9.3); Neutrophils # 8.3 K/mm3 (1.8-7.8); Neutrophils % 81.7 % (37.0-80.0); Platelet Count 381 K/mm3 (142-424); Red Blood Count 3.44 M/mm3 (4.20-5.40); Red Cell Distribution Width 15.5 % (11.5-17.5); White Blood Count 10.1 K/mm3 (4.8-10.8)
[2020-10-12 12:49] LABS: Chloride 104 mmol/L (98-107); Potassium 3.2 mmoL/L (3.5-5.1); Sodium 142 mmol/L (136-145)
[2020-10-12 12:51] LABS: Blood Urea Nitrogen 17 mg/dl (7-17); Estimated Glomerular Filt Rate 49 ml/min (>60); GFR (African American) 59 ML/MIN (>60)
[2020-10-12 12:52] LABS: Alanine Aminotransferase 7 U/L (12-78); Albumin Level 3.3 g/dl (3.5-5.0); Albumin/Globulin Ratio 1.5 (1.1-1.8); Alkaline Phosphatase 128 U/L (38-126); Anion Gap 13.2 mEq/L (5-15); Aspartate Amino Transferase 17 U/L (14-36); Bilirubin,Total 0.3 mg/dl (0.2-1.3); Calcium 8.5 mg/dl (8.4-10.2); Carbon Dioxide 28 mmol/L (22.0-30.0); Globulin 2.2 g/dL (1.3-3.2); Glucose 106 mg/dl (74-100); Total Protein,Serum 5.5 g/dl (6.3-8.2)
[2020-10-12 13:09] LABS: 25-OH Vitamin D, Total 45.6 ng/mL (30-100)
[2020-10-12 13:16] LABS: Uric Acid 4.4 mg/dl (2.5-6.2)
== END ==
PROVIDERS: Visit Provider Nurse Practitioner Family
DX: N20.0 Calculus of kidney (principal); R60.9 Edema, unspecified; E55.9 Vitamin D deficiency, unspecified
CPT/HCPCS: 36415; 80053; 82306; 84550; 85025

== ENCOUNTER → 2020-10-25 08:55 | Outpatient (CLI) | payer MEDICARE, OTHER, SELFPAY ==
--- NOTE | 2020-10-25 09:18 | CT_ITS ---
PROCEDURE: CT ANGIO CHEST CLINCIAL INDICATION: DESCENDING THORACIC AORTIC ANEURYSM Follow-up aneurysm, status post aneurysm repair COMPARISON: CT CT ABDOMEN PELVIS WO CON from 04/20/[address] ANGIO CHEST from 04/21/[address] ANGIO ABDOMEN from 04/21/2020 TECHNIQUE: IV Contrast: 70ML Isovue 370 Axial images obtained with sagittal and coronal reformats. All CT scans at the facility use one or more dose reduction, viz: automated exposure control, ma/kV adjustment per patient size (including targeted exams where dose is matched to indication, i.e. head), or iterative reconstruction technique. FINDINGS: S/p aortic endo graft placement. The graft begins just distal to the left subclavian artery origin and extends to the lower thoracic aorta just proximal to the aortic hiatus. There is mild dilatation of the thoracic aorta measuring up to 4.2 cm in AP dimension. There is a thrombosed saccular component of the descending thoracic aorta extending laterally as before. At this region the transverse dimension of the aorta is 5.2 cm previously 5.7 cm. The saccular component is 1.3 cm in with previously 1.7 cm in with. The aortic lumen at the level of the saccular component is 3.6 cm previously 4.2 cm. No evidence of endo graft leak. The aortic arch measures 4.1 cm in transverse dimension previously 4.8 cm. There is mild dilatation of the ascending thoracic aorta measuring 4.2 cm in AP dimension not significantly changed. Coronary artery calcification and minimal aortic valve calcification is noted. No mediastinal or hilar mass. There are few scattered small mediastinal lymph nodes not significantly changed. Small hiatal hernia. There is mild thickening of the right major fissure inferiorly. There are small bilateral pleural effusions with a few scattered areas of scarring. There is generalized osteopenia. No acute bony findings. Upper abdominal images show prior cholecystectomy with mild biliary dilatation. 1.7 cm hypodensity is present involving the spleen anteriorly not significantly changed. There are several hyperdensities noted of the right kidney the largest area at 8 mm superiorly and laterally.. The largest areas not significantly changed. The other small areas have developed since the previous exam and are of uncertain clinical significance IMPRESSION: 1. Status post thoracic aortic endograft placement as detailed above with interval decrease in size of the thoracic aortic aneurysm including the saccular component. No evidence of endo graft leak. 2. No significant change mild dilatation of the ascending thoracic aorta at 4.2 cm. 3. Small bilateral pleural effusions have developed in the interval. 4. At least 4 small areas of increased density of the right kidney which are not present previously etiology indeterminate. Dedicated CT or MRI of the kidneys without and with contrast may provide further evaluation. Dictated by: Bernardo Johnson MD 10/26/2020 08:58 Bernardo Johnson MD in [place] 10/26/2020 08:58
[2020-10-25 09:22] LABS: Blood Urea Nitrogen 25 mg/dl (7-17); Estimated Glomerular Filt Rate 54 ml/min (>60); GFR (African American) 66 ML/MIN (>60)
== END ==
PROVIDERS: PCP Nurse Practitioner Family; Visit Provider Thoracic Surgery (Cardiothoracic Vascular Surgery)
DX: I71.2 Thoracic aortic aneurysm, without rupture (principal)
CPT/HCPCS: 36415; 71275; 82565; 84520; Q9967

== ENCOUNTER → 2020-11-21 08:08 | Outpatient (CLI) | payer MEDICARE, OTHER, SELFPAY ==
--- NOTE | 2020-11-21 08:25 | CT_ITS ---
PROCEDURE INFORMATION: Exam: CT Abdomen And Pelvis Without And With Contrast; Kidneys Exam date and time: 11/21/2020 8:25 AM Age: 75 years old Clinical indication: Mass, lump, or swelling; Rlq; Additional info: RT kidney mass TECHNIQUE: Imaging protocol: Computed tomography of the abdomen and pelvis without and with intravenous contrast. Exam focused on the kidneys. Radiation optimization: All CT scans at this facility use at least one of these dose optimization techniques: automated exposure control; mA and/or kV adjustment per patient size (includes targeted exams where dose is matched to clinical indication); or iterative reconstruction. COMPARISON: CT ABDOMEN PELVIS WO CON 04/20/2020 6:53 PM FINDINGS: Pleural space: There are small bibasilar pleural effusions. Linear zones of scarring or atelectasis are identified at the lung bases. No evidence of acute infiltrate or mass. Liver: There is mild intrahepatic biliary dilatation. No focal transition point. The this is likely related to prior surgical procedure. Gallbladder and bile ducts: The gallbladder is surgically absent. No evidence of extrahepatic biliary dilatation. Mild expected prominence of the common hepatic duct and common bile duct. Pancreas: Normal. No ductal dilation. Spleen: There is a 1.8 cm well-circumscribed cyst along the anterior aspect of the spleen. There is a small focus of calcification along its wall which is felt to be benign. Adrenals: 2.3 cm low-attenuation mass without significant enhancement within the left adrenal gland, compatible with an adenoma. Kidneys and ureters: Within both kidneys there are focal areas of hyperdensity on the unenhanced examination. After contrast enhancement there is no evidence of enhancement of any of these areas and reversal of attenuation with the parenchyma demonstrating enhancement and the hyperdense masses demonstrating no enhancement. These findings are therefore felt to represent bilateral renal cysts with internal hemorrhage or debris. Additional cysts which do not contain internal hemorrhage or debris are also identified within the kidneys. They are all located within the cortex. Stomach and bowel: Focal thickening of portions of the right colon and transverse colon also seen on prior CT a of the chest, which may represent focal colitis. Mild prominence of loops of fluid and air-filled small bowel within the mid abdomen. No transition point to suggest obstruction. No obstruction. No mucosal thickening. Intraperitoneal space: Unremarkable. No free air. No significant fluid collection. Lymph nodes: Unremarkable. No enlarged lymph nodes. Vasculature: Endovascular stent identified within an aneurysm of the descending thoracic aorta. No evidence of abdominal aortic aneurysm. Atheromatous changes of the aorta, visceral arteries, iliac arteries, and femoral arteries noted. There are clips adjacent to the left common femoral artery which may represent prior surgical vascular procedure. Bladder: Unremarkable. Reproductive: Unremarkable. Bones/joints: Degenerative changes noted. No acute fracture. No dislocation. Soft tissues: Unremarkable. IMPRESSION: 1. Findings within the kidneys are felt to represent bilateral renal cysts, with hyperdense regions on the unenhanced examination felt to represent cysts with internal hemorrhage or debris. 2. Mild intrahepatic biliary dilatation associated with prior cholecystectomy. This is likely a chronic finding. 3. 1.8 cm well-circumscribed cyst anterior aspect of the spleen with calcification along a portion of its wall. 4. Left adrenal adenoma. 5. Findings within the right and tra
[2020-11-21 08:44] LABS: Blood Urea Nitrogen 22 mg/dl (7-17); Estimated Glomerular Filt Rate 49 ml/min (>60); GFR (African American) 59 ML/MIN (>60)
== END ==
PROVIDERS: PCP Nurse Practitioner Family; Visit Provider Nurse Practitioner Family
DX: N28.89 Other specified disorders of kidney and ureter (principal)
CPT/HCPCS: 36415; 74178; 82565; 84520; Q9967

== ENCOUNTER → 2021-03-01 15:02 | Outpatient (CLI) | payer MEDICARE, OTHER, SELFPAY ==
[2021-03-01 15:23] LABS: Basophils # 0.1 K/mm3 (0-0.2); Basophils % 0.7 % (0.1-2.0); Eosinophils # 0.3 K/mm3 (0.0-0.4); Eosinophils % 3.1 % (0.1-12.0); Hematocrit 38.3 % (37.0-47.0); Hemoglobin 11.2 g/dL (12.2-16.2); Lymphocytes # 1.6 K/mm3 (0.7-4.5); Lymphocytes % 18.2 % (10-50); Mean Corpuscular HGB Conc 29.2 g/dL (31.8-35.4); Mean Corpuscular Hemoglobin 31.6 pg (27.0-31.2); Mean Corpuscular Volume 108.4 fl (81-99); Mean Platelet Volume 9.5 fl (7.4-10.4); Monocytes # 0.4 K/mm3 (0.1-1.0); Monocytes % 4.2 % (1.7-9.3); Neutrophils # 6.3 K/mm3 (1.8-7.8); Neutrophils % 73.8 % (37.0-80.0); Platelet Count 294 K/mm3 (142-424); Red Blood Count 3.53 M/mm3 (4.20-5.40); Red Cell Distribution Width 16.7 % (11.5-17.5); White Blood Count 8.6 K/mm3 (4.8-10.8)
[2021-03-01 16:06] LABS: Alanine Aminotransferase 6 U/L (12-78); Albumin Level 3.9 g/dl (3.5-5.0); Alkaline Phosphatase 103 U/L (38-126); Anion Gap 8.7 mEq/L (5-15); Aspartate Amino Transferase 15 U/L (14-36); Bilirubin,Total 0.4 mg/dl (0.2-1.3); Blood Urea Nitrogen 24 mg/dl (7-17); Carbon Dioxide 29 mmol/L (22.0-30.0); Chloride 104 mmol/L (98-107); Estimated Glomerular Filt Rate 37 ml/min (>60); GFR (African American) 44 ML/MIN (>60); Glucose 104 mg/dl (74-100); Potassium 3.7 mmoL/L (3.5-5.1); Sodium 138 mmol/L (136-145); Total Protein,Serum 5.9 g/dl (6.3-8.2)
[2021-03-01 16:25] LABS: 25-OH Vitamin D, Total 48.5 ng/mL (30-100)
[2021-03-02 17:56] LABS: Vitamin B12 210 pg/mL (239-931)
[2021-03-02 17:57] LABS: Folate > 20.00 ng/mL
== END ==
PROVIDERS: PCP Nurse Practitioner Family; Visit Provider Nurse Practitioner Family
DX: E77.8 Other disorders of glycoprotein metabolism (principal); R60.9 Edema, unspecified; D64.9 Anemia, unspecified; E55.9 Vitamin D deficiency, unspecified
CPT/HCPCS: 36415; 80053; 82306; 82607; 82746; 85025

== ENCOUNTER → 2021-11-15 13:48 | Outpatient (CLI) | payer OTHER, MEDICARE, SELFPAY ==
[2021-11-15 15:39] LABS: Chloride 100 mmol/L (98-107); Sodium 142 mmol/L (136-145)
[2021-11-15 15:40] LABS: Potassium 3.4 mmoL/L (3.5-5.1)
[2021-11-15 15:42] LABS: Blood Urea Nitrogen 30 mg/dl (7-17); Estimated Glomerular Filt Rate 34 ml/min (>60); GFR (African American) 41 ML/MIN (>60)
[2021-11-15 15:43] LABS: Anion Gap 12.4 mEq/L (5-15); Calcium 7.6 mg/dl (8.4-10.2); Carbon Dioxide 33 mmol/L (22.0-30.0); Glucose 92 mg/dl (74-100)
== END ==
PROVIDERS: Visit Provider Nurse Practitioner Family
DX: E44.0 Moderate protein-calorie malnutrition (principal)
CPT/HCPCS: 80048

== ENCOUNTER → 2021-11-28 12:42 | Outpatient (CLI) | payer MEDICARE, OTHER, SELFPAY ==
--- NOTE | 2021-11-28 12:49 | CA_ITS ---
FINAL REPORT CLINICAL HISTORY: EDEMA BILATERAL,PT ON ASA,HTN FINDINGS: Color Doppler, duplex Doppler and compression sonography of the bilateral lower extremities was performed. There is no evidence of deep venous thrombosis from the level of the groin to the calf. The deep veins are patent and compressible. IMPRESSION: No evidence of deep venous thrombosis bilateral lower extremities. Reviewed, Interpreted and Dictated by Colten Domínguez III, MD Transcribed by Preet Hammer Authenticated and [facility] [place]
== END ==
PROVIDERS: PCP Nurse Practitioner Family; Visit Provider Nurse Practitioner Family
DX: R60.0 Localized edema (principal); I10 Essential (primary) hypertension
CPT/HCPCS: 93970

== ENCOUNTER → 2022-02-13 11:42 | Outpatient (CLI) | payer OTHER, SELFPAY ==
[2022-02-13 12:10] LABS: Basophils # 0.1 K/mm3 (0-0.2); Basophils % 0.8 % (0.1-2.0); Eosinophils % 0.4 % (0.1-12.0); Hematocrit 38.6 % (37.0-47.0); Hemoglobin 11.7 g/dL (12.2-16.2); Lymphocytes # 1.6 K/mm3 (0.7-4.5); Lymphocytes % 13.7 % (10-50); Mean Corpuscular HGB Conc 30.4 g/dL (31.8-35.4); Mean Corpuscular Hemoglobin 32.4 pg (27.0-31.2); Mean Corpuscular Volume 106.9 fl (81-99); Mean Platelet Volume 7.9 fl (7.4-10.4); Monocytes # 0.4 K/mm3 (0.1-1.0); Monocytes % 3.6 % (1.7-9.3); Neutrophils # 9.2 K/mm3 (1.8-7.8); Neutrophils % 81.6 % (37.0-80.0); Platelet Count 383 K/mm3 (142-424); Red Blood Count 3.61 M/mm3 (4.20-5.40); Red Cell Distribution Width 18.3 % (11.5-17.5); White Blood Count 11.3 K/mm3 (4.8-10.8)
[2022-02-13 12:44] LABS: Chloride 97 mmol/L (98-107); Potassium 3.2 mmoL/L (3.5-5.1); Sodium 137 mmol/L (136-145)
[2022-02-13 12:46] LABS: Alanine Aminotransferase 24 U/L (12-78); Aspartate Amino Transferase 25 U/L (14-36); Blood Urea Nitrogen 23 mg/dl (7-17); Estimated Glomerular Filt Rate 26 ml/min (>60); GFR (African American) 31 ML/MIN (>60)
[2022-02-13 12:47] LABS: Albumin Level 4.3 g/dl (3.5-5.0); Albumin/Globulin Ratio 2.3 (1.1-1.8); Alkaline Phosphatase 115 U/L (38-126); Anion Gap 16.2 mEq/L (5-15); Bilirubin,Total 0.5 mg/dl (0.2-1.3); Calcium 8.9 mg/dl (8.4-10.2); Carbon Dioxide 27 mmol/L (22.0-30.0); Globulin 1.9 g/dL (1.3-3.2); Glucose 132 mg/dl (74-100); Total Protein,Serum 6.2 g/dl (6.3-8.2)
== END ==
PROVIDERS: PCP Nurse Practitioner Family; Visit Provider Nurse Practitioner Family
DX: E44.1 Mild protein-calorie malnutrition (principal); R44.3 Hallucinations, unspecified; R61 Generalized hyperhidrosis; R11.2 Nausea with vomiting, unspecified; R19.7 Diarrhea, unspecified
CPT/HCPCS: 80053; 85025

== ENCOUNTER → 2022-02-14 10:29 | Outpatient (CLI) | payer OTHER, SELFPAY ==
[2022-02-14 11:29] LABS: Microscopic, Urine URINE MICROSCOPIC (MICROSCOPIC)
[2022-02-14 13:00] LABS: Appearance,Urine SL CLOUDY (Clear); Bilirubin,Urine Negative (Negative); Blood, Urine TRACE-L (Negative); Color,Urine YELLOW (Yellow); Glucose,Urine (UA) Negative (Negative); Ketones,Urine Negative (Negative); Leukocyte Esterase,Urine Negative (Negative); Nitrate,Urine Negative (Negative); Protein,Urine 2+ (Negative); Specific Gravity, Urine 1.025 (1.005-1.030); Urobilinogen,Urine 0.2 EU/dl (0.2)
[2022-02-14 13:29] LABS: Bacteria,Urine 2+ /lpf; WBC,Urine Occasional #/hpf (0-3)
== END ==
PROVIDERS: PCP Nurse Practitioner Family; Visit Provider Nurse Practitioner Family
DX: E44.1 Mild protein-calorie malnutrition (principal)
CPT/HCPCS: 81001; 87086

== ENCOUNTER → 2022-10-23 12:56 | Outpatient (CLI) | payer OTHER, MEDICARE, SELFPAY ==
--- NOTE | 2022-10-23 | CA_ITS ---
APPROVED REPORT EXAM: Comprehensive 2D, Doppler, and color-flow Echocardiogram Crystal Growing Technician: Janette Montalvo RT(R) Ht: 5 ft 6 in Wt: 108lbs BSA: 1.54 BP: 122/61 mmHg Indications: AAA thoracic, HTN, smoker, nausea and dehydration, hx gout, pancreatitis, HTN 2D Dimensions LVOT 1.91 cm (M/F) 1.5-2.5 LVEF (Espino's) 58.20 % F: 54 - 74 LV Volume 88.70 mL F: 46 - 106 LV Volume Index 57.60 mL/m2 F: 29 - 61 LA Volume 74.00 mL LA Volume Index 48.05 mL/m2 (M/F) 16-34 M-Mode Dimensions RVDd 2.66 cm (0.9-2.6) LA Diam 3.96 cm (1.9-4.0) LVDd 6.01 cm (3.5-5.7) Ao Diam 2.74 cm (2.0-3.7) LVDs 4.76 cm (3.5-5.7) IVSd 0.84 cm (0.6-1.1) PWd 0.88 cm (0.6-1.1) EF (Teich) 41.70% FS 20.80% EDV (Teich) 180.70 mL ESV (Teich) 105.40 mL LV Diastology E Decel Time 210.00 (160-240 msec) E/A Ratio 0.7 MED E' 4.90 (< 7 cm/sec) E'/MED E' Ratio 13.57 (>14) LAT E' 6.70 (<10 cm/sec) E/LAT E' Ratio 9.93 (>14) Mitral Valve MV E Max Dinh. 66.00 (40-130 cm/s) MV A Velocity 91.00 (40-130 cm/s) E/A Ratio 0.73 MV Decel. Time 210.00 (160-240 ms) MV PHT 62.00 ms Left Ventricle The left ventricle is normal size. The left ventricular systolic function is normal. The left ventricular ejection fraction is within the normal range. There is increased LV wall thickness, There is normal LV segmental wall motion. There is grade II diastolic dysfunction. LVEF is 55%. Right Ventricle The right ventricle is normal size. The right ventricular systolic function is normal. Atria Left atrium is moderately dilated. Right atrium is mildly dilated. There is no Doppler evidence of interatrial shunt. Aortic Valve The aortic valve is mildly thickened. There is no aortic valvular stenosis. No aortic regurgitation is present. Mitral Valve The mitral valve is mildly thickened. No evidence of mitral valve stenosis. Trace mitral regurgitation. Tricuspid Valve The tricuspid valve leaflets are thin and pliable. Trace tricuspid regurgitation. RVSP is 50-55 mmHg. Pulmonic Valve The pulmonary valve is normal in structure. Trace pulmonic regurgitation. Great Vessels The aortic root is normal in size. The ascending aorta is normal in size. IVC is normal in size and collapses >50% with inspiration. Pericardium There is no pericardial effusion. Other Information Study Quality: Fair Conclusion Normal biventricular systolic function. Grade II diastolic dysfunction. Biatrial enlargement. Elevated RVSP 50-55 mmHg. Electronically signed by : Janiya Forbes, 10/28/2022 23:53:19
--- NOTE | 2022-10-23 | CA_ITS ---
FINAL REPORT TECHNIQUE: Color Doppler, duplex Doppler and parmar scale sonography of the bilateral neck vasculature was performed. Velocities were measured in the carotid arteries. Stenosis evaluation based on velocity criteria. CLINICAL HISTORY: smoker, AAA COMPARISON: None FINDINGS: The peak systolic velocity of the right common carotid artery is 118.5 cm/sec and internal carotid artery 156.1 cm/sec. The diastolic velocity in the internal carotid artery is 37.4 cm/sec. The ICA/CCA ratio is 1.42. Visually, a small to moderate amount of plaque is seen. These findings are consistent with less than 50% stenosis. The external carotid artery is patent. The right vertebral artery is patent with antegrade flow. The peak systolic velocity of the left common carotid artery is cm/sec and internal carotid artery 146.5 cm/sec. The diastolic velocity in the internal carotid artery is 147.6 cm/sec. The ICA/CCA ratio is 1.5. Visually, a small to moderate amount of plaque is seen. These findings are consistent with less than 50% stenosis. The external carotid artery is patent. The left vertebral artery is patent with antegrade flow. IMPRESSION: No evidence of significant carotid stenosis. Bilateral patent vertebral arteries. If indicated, CTA or MRA could further evaluate. Reviewed, Interpreted and Dictated by Colten Domínguez III, MD Transcribed by Melanie Hood Authenticated and [facility]
== END ==
PROVIDERS: PCP Nurse Practitioner Family; Visit Provider Nurse Practitioner Family
DX: R07.9 Chest pain, unspecified (principal); I65.23 Occlusion and stenosis of bilateral carotid arteries; R06.02 Shortness of breath
CPT/HCPCS: 93306; 93880

== ENCOUNTER 2023-07-16 13:59 | Inpatient (IN) | payer MEDICARE, OTHER, SELFPAY ==
[2023-07-16] VITALS (9 sets, daily range): BP systolic 117–142; BP diastolic 58–70; PULSE 67–88; RESP 16–20; TEMP 36.4–36.7; O2SAT 90–100; BMI 17.6; BMI 15.0
--- NOTE | 2023-07-16 14:12 | HMH.EDGENADL ---
Discharge Plan Disposition Patient Disposition: Admitted Condition: Critical Clinical Impressions Clinical Impression: Uremia, Toxic metabolic encephalopathy Acute on chronic renal failure Qualifiers: Acute renal failure type: unspecified Chronic kidney disease stage: unspecified stage Qualified Code(s): N17.9 - Acute kidney failure, unspecified Discharge ED Provider: Umberto Taylor General Adult HPI <IGGY Rod - Last Filed: 07/16/23 15:42> General Chief complaint: Altered Mental Status Stated complaint: AMS Time Seen by Provider: 07/16/23 14:08 History of Present Illness HPI narrative: Patient presents for evaluation of acute confusion. Patient's brother states that for the last several days patient has not been eating sleeping a lot is talking to people who are no longer live with her mother. There is no known last well. Patient has been on hospice previously for chronic back pain however she is not currently on hospice care. Patient does live independently and usually does most of her activities of daily living. Patient herself is extremely hard of hearing but denies chest pain fever chills hemoptysis hematochezia melena nausea vomiting diarrhea but does state that she is cold . Related Data Home Medications Medication Instructions Recorded Confirmed amlodipine 5 mg tablet 5 mg PO DAILY Hypertension 07/12/17 04/20/20 aspirin 81 mg chewable tablet 81 mg PO DAILY HEART HEALTH 07/12/17 04/20/20 cetirizine 10 mg capsule 10 mg PO DAILY Allergy symptoms 07/12/17 04/20/20 duloxetine 30 mg capsule,delayed 30 mg PO DAILY Depression 07/12/17 04/20/20 release bisoprolol 10 1 tab PO DAILY Hypertension 08/14/17 04/21/20 mg-hydrochlorothiazide 6.25 mg tablet (Ziac) hydrocodone 10 mg-acetaminophen 1 - 2 tab PO TIDP PRN pain 08/14/17 04/21/20 325 mg tablet ([place]) calcium phosphate,dibasic 100 1 each PO DAILY Diet supplement 04/20/20 04/20/20 mg-vitamin D3 3 mcg tablet ergocalciferol (vitamin D2) 1,250 50,000 units PO WEEKLY Diet 04/20/20 04/20/20 mcg (50,000 unit) capsule supplement allopurinol 100 mg tablet 100 mg PO DAILY GOUT 04/21/20 04/21/20 Allergies Allergy/AdvReac Type Severity Reaction Status Date / Time ciprofloxacin [From Cipro] Allergy Intermediate I-RASH Verified 04/20/20 17:36 lisinopril Allergy Intermediate I-RASH, GI Verified 04/20/20 17:36 UPSET oxaprozin Allergy Intermediate I-RASH Verified 04/20/20 17:36 tramadol Allergy Intermediate HEADACHE Verified 04/20/20 17:36 venlafaxine Allergy Unknown Unknown Verified 04/20/20 17:36 allergy reaction PFSH <IGGY Rod - Last Filed: 07/16/23 15:42> [facility] Disclaimer: The information contained in this section may have been updated after the patient was seen, as this information can be updated by other users. Social History Smoking Status: Unknown if ever smoked alcohol intake: former counseling provided: provider counseling (Dr. Sheffield once again informed pt about bone healing while continuing to smoke) substance use type: denies use current occupational status: disabled Travel in the last 8 weeks: None household members: none housing: house <IGGY Rod - Last Filed: 07/16/23 15:42> ROS Obtained: Yes Systems reviewed as appropriate & no additional complaints except as documented Physical Exam <IGGY Rod - Last Filed: 07/16/23 15:42> General General appearance: in no apparent distress and lethargic (But arousable) Head Head exam: atraumatic and normal inspection Eye Eye exam: Present normal appearance, PERRL and EOMI ENT ENT exam: Present normal exam, normal oropharynx, mucous membranes dry and other (Severe presbycusis) Neck Neck exam: Present normal inspection, full ROM and trachea midline; Absent tenderness, meningismus or lymphadenopathy Chest Chest inspection: Present normal inspection and symmetric chest wall rise; Absent tenderness Respiratory Respiratory exam: Present normal lung sounds bilaterally; Absent respiratory distress, wheezes or accessory muscle use Cardiovascular Cardiovascular exam: Present regular rate, normal rhythm and normal heart sounds Abdominal Exam Abdominal exam: Present soft and normal bowel sounds; Absent distention, tenderness, guarding, rebound or rigidity Extremities Exam Extremities exam: Present normal inspection, full ROM and normal capillary refill; Absent tenderness or edema Back Exam Back exam: Present normal inspection, full ROM and tenderness (Tenderness along the entirety of the dorsal spine but no obvious deformities trauma or contusions) Neurological Exam Neurological exam: Present CN II-XII intact; Absent alert (Somnolent but slowly arousable) or oriented X3 (Oriented to self however patient is severely hard of hearing) Psychiatric Psychiatric exam: Present normal affect and normal mood Skin Skin exam: Present warm, dry and normal color Medical Decision Making <IGGY Rod - Last Filed: 07/16/23 15:42> Medical Records Medical records reviewed: Yes I reviewed the patient's medical records. Enrique Inquiry Pt receiving controlled substance: No Vital Signs: 07/16/23 14:00 07/16/23 14:30 07/16/23 15:00 Pulse Rate 67 75 Pulse Rate [Right Brachial] 78 Respiratory Rate 16 Blood Pressure 134/67 135/62 Blood Pressure [Right Arm] 126/64 Blood Pressure Mean [Right Arm] 84 Blood Pressure Source [Right Arm] Automatic Cuff Blood Pressure Position [Right Arm] Sitting 02 Sat by Pulse Oximetry 98 92 L 97 Oxygen Delivery Method Room Air Room Air Lab Data Lab results reviewed: Yes I reviewed the patient's lab results. Lab Results 07/16/23 14:20: SARS-CoV-2 (PCR) Not detected, Influenza A Untype (PCR) Not detected, Influenza Type B (PCR) Not detected 07/16/23 14:28: WBC 20.6 H*, RBC 3.93 L, Hgb 12.7, Hct 40.0, MCV 101.8 H, MCH 32.3 H, MCHC 31.7 L, RDW 18.1 H, Plt Count 240, MPV 8.7, Neut % (Auto) 94.0 H, Lymph % (Auto) 3.5 L, Door % (Auto) 2.1, Eos % (Auto) 0.3, Baso % (Auto) 0.1, Neut # (Auto) 19.4 H, Lymph # (Auto) 0.7, Door # (Auto) 0.4, Eos # (Auto) 0.1, Baso # (Auto) 0.0, Total Counted 100, Neutrophils % (Manual) 91 H, Lymphocytes % (Manual) 7 L, Atypical Lymphs % 1.0, Monocytes % (Manual) 1 L, Platelet Estimate Normal, Anisocytosis 1+, Macrocytosis 1+, Sodium 136, Potassium 3.9, Chloride 100, Carbon Dioxide 13 L, Anion Gap 26.9 H, BUN 108 H*, Creatinine 4.80 H, Estimated Creat Clear 6, Estimated GFR 9 L*, Est GFR ( Amer) 11 L*, Glucose 119 H, Calcium 9.1, Magnesium 1.6, Total Bilirubin 0.6, AST 28, ALT 21, Alkaline Phosphatase 79, Troponin I 0.09 H, NT-Pro-B Natriuret Pep 83793 H, Total Protein 6.8, Albumin 4.5, Globulin 2.3, Albumin/Globulin Ratio 2.0 H, TSH 0.02 L, Acetone Level None detected 07/16/23 14:30: VBG pH 7.26 L, VBG pCO2 29.6 L, VBG pO2 101.1 H, VBG HCO3 12.8 L, VBG Total CO2 13.7 L, VBG O2 Saturation 97.3 H, VBG Base Excess -14.3 L, VBG Lactic Acid 1.7 07/16/23 14:52: Urine Color Yellow, Urine Appearance Clear, Urine pH 5.0, Ur Specific [place] 1.020, Urine Protein 1+, Urine Glucose (UA) Negative, Urine Ketones Negative, Urine Blood Negative, Urine Nitrate Negative, Urine Bilirubin 1+ A, Urine Urobilinogen 0.2, Ur Leukocyte Esterase Negative, Urine RBC None, Urine WBC None, Ur Squamous Epith Cells Occasional, Amorphous Sediment Trace, Urine Bacteria Trace, Urine Opiates Screen Positive H, Urine Methadone Screen Negative, Ur Barbituates Screen Negative, Ur Phencyclidine Scrn Negative, Ur Amphetamines Screen Negative, U Benzodiazepines Scrn Negative, Urine Cocaine Screen Negative, U Marijuana (THC) Screen Negative 07/16/23 14:28 07/16/23 14:28 Orders (Tests/Meds): ED MEDICATIONS Generic Name Dose Route Start Last Admin Trade Name Freq PRN Reason Stop Dose Admin Acetaminophen 650 mg 07/16/23 15:39 Acetaminophen 325mg Tab PO 08/15/23 15:38 Q4HP PRN Fever or Mild Pain (1-3) Heparin Sodium (Porcine) 5,000 unit 07/16/23 15:45 Heparin Sodium 5,000 Unit/Ml Vial SQ 08/15/23 15:44 Q8H MOMO Sodium Chloride 1,000 mls @ 50 mls/hr 07/16/23 15:45 Sod Chlor 0.9% 1000ml Bag IV 08/15/23 15:44 .Q20H MOMO Ondansetron HCl 4 mg 07/16/23 15:39 Ondansetron 4mg/2ml Vial IV 08/15/23 15:38 Q8HP PRN Nausea Discontinued Medications Generic Name Dose Route Start Last Admin Trade Name Freq PRN Reason Stop Dose Admin Lactated Ringer's 1,000 mls @ 999 mls/hr 07/16/23 14:12 07/16/23 14:34 Lactated Ringer's 1000 Ml Bag IV 07/16/23 15:12 999 mls/hr .Q1H1M ONE Administration ORDERS Category Date Time Status Acetone, Serum (Rapid) Stat Lab 07/16/23 14:28 Completed BNP [NT Pro Brain Natriuretic Pep.] Stat Lab 07/16/23 14:28 Completed Basic Metabolic Panel AMLAB Lab 07/17/23 06:00 Ordered Basic Metabolic Panel AMLAB Lab 07/18/23 06:00 Ordered Basic Metabolic Panel AMLAB Lab 07/19/23 06:00 Ordered Basic Metabolic Panel AMLAB Lab 07/20/23 06:00 Ordered CBC w/Auto Diff [Complete Blood Count Auto Diff] Stat Lab 07/16/23 14:28 Completed CMP [Comprehensive Metabolic Panel] Stat Lab 07/16/23 14:28 Completed Complete Blood Count Auto Diff AMLAB Lab 07/17/23 06:00 Ordered Complete Blood Count Auto Diff AMLAB Lab 07/18/23 06:00 Ordered Complete Blood Count Auto Diff AMLAB Lab 07/19/23 06:00 Ordered Complete Blood Count Auto Diff AMLAB Lab 07/20/23 06:00 Ordered Magnesium Stat Lab 07/16/23 14:28 Completed Rapid PCR Covid and Flu A/B Stat Lab 07/16/23 14:20 Completed TSH [Thyroid Stimulating Hormone] Stat Lab 07/16/23 14:28 Completed Trop I [Troponin I] Stat Lab 07/16/23 14:28 Completed UA [Urinalysis and Microscopic] Stat Lab 07/16/23 14:52 Completed UDS [Drug Screen,Urine] Stat Lab 07/16/23 14:52 Completed VBG [Venous Blood Gas] Stat RT 07/16/23 14:30 Completed HEART Score History (anamnesis): Slightly suspicious Age: >65 years Risk factors: 3 or more risk factors Medical Decision Narrative: In summary patient is a 78-year-old female who presents to the emergency department for evaluation of acute confusion. Patient is stable upon arrival, afebrile. Physical exam is remarkable for very petite cachectic appearing somnolent but arousable 78-year-old female who is oriented to person place but not circumstance. Breath sounds are clear and equal bilaterally heart sounds are normal no tenderness to palpation except dorsal spine which is a chronic issue. Differential diagnosis includes ACS versus stroke versus occult infection versus polypharmacy etc. Initial workup will be conducted with hematologic labs, twelve-lead EKG, plain film chest x-ray, urinalysis. Initial interventions include fluid bolus. Initial workup reviewed by me and shows a critically high BUN and creatinine. At that point I had an interactive discussion with the patient and the patient's family at the patient's bedside reviewing goals of care. Patient is able to state unequivocally that she does not want aggressive care including potential emergent dialysis or investigation to the causes. Family supports that this is her long stated wish. I then had an interactive discussion with a hospice office services representative that I evaluated the patient at her home today. Patient has not been officially accepted into hospice care and family is not prepared to take her home and provide her care as patient lives alone and they have no resources in place yet. At that point I had a interact discussion with hospital medicine at 1520 regarding patient management and possible admission. Hospital medicine asked if I had spoken with the social media sr strategy manager which I have not. He is going to reach out to show services in our facility and will call me back. Hospital medicine has agreed to admission for comfort care <Umberto Taylor MD - Last Filed: 07/16/23 16:04> Vital Signs: 07/16/23 14:00 07/16/23 14:30 07/16/23 15:00 Pulse Rate 67 75 Pulse Rate [Right Brachial] 78 Respiratory Rate 16 Blood Pressure 134/67 135/62 Blood Pressure [Right Arm] 126/64 Blood Pressure Mean [Right Arm] 84 Blood Pressure Source [Right Arm] Automatic Cuff Blood Pressure Position [Right Arm] Sitting 02 Sat by Pulse Oximetry 98 92 L 97 Oxygen Delivery Method Room Air Room Air Lab Data Lab Results 07/16/23 14:20: SARS-CoV-2 (PCR) Not detected, Influenza A Untype (PCR) Not detected, Influenza Type B (PCR) Not detected 07/16/23 14:28: WBC 20.6 H*, RBC 3.93 L, Hgb 12.7, Hct 40.0, MCV 101.8 H, MCH 32.3 H, MCHC 31.7 L, RDW 18.1 H, Plt Count 240, MPV 8.7, Neut % (Auto) 94.0 H, Lymph % (Auto) 3.5 L, Door % (Auto) 2.1, Eos % (Auto) 0.3, Baso % (Auto) 0.1, Neut # (Auto) 19.4 H, Lymph # (Auto) 0.7, Door # (Auto) 0.4, Eos # (Auto) 0.1, Baso # (Auto) 0.0, Total Counted 100, Neutrophils % (Manual) 91 H, Lymphocytes % (Manual) 7 L, Atypical Lymphs % 1.0, Monocytes % (Manual) 1 L, Platelet Estimate Normal, Anisocytosis 1+, Macrocytosis 1+, Sodium 136, Potassium 3.9, Chloride 100, Carbon Dioxide 13 L, Anion Gap 26.9 H, BUN 108 H*, Creatinine 4.80 H, Estimated Creat Clear 6, Estimated GFR 9 L*, Est GFR ( Amer) 11 L*, Glucose 119 H, Calcium 9.1, Magnesium 1.6, Total Bilirubin 0.6, AST 28, ALT 21, Alkaline Phosphatase 79, Troponin I 0.09 H, NT-Pro-B Natriuret Pep 18622 H, Total Protein 6.8, Albumin 4.5, Globulin 2.3, Albumin/Globulin Ratio 2.0 H, TSH 0.02 L, Acetone Level None detected 07/16/23 14:30: VBG pH 7.26 L, VBG pCO2 29.6 L, VBG pO2 101.1 H, VBG HCO3 12.8 L, VBG Total CO2 13.7 L, VBG O2 Saturation 97.3 H, VBG Base Excess -14.3 L, VBG Lactic Acid 1.7 07/16/23 14:52: Urine Color Yellow, Urine Appearance Clear, Urine pH 5.0, Ur Specific [place] 1.020, Urine Protein 1+, Urine Glucose (UA) Negative, Urine Ketones Negative, Urine Blood Negative, Urine Nitrate Negative, Urine Bilirubin 1+ A, Urine Urobilinogen 0.2, Ur Leukocyte Esterase Negative, Urine RBC None, Urine WBC None, Ur Squamous Epith Cells Occasional, Amorphous Sediment Trace, Urine Bacteria Trace, Urine Opiates Screen Positive H, Urine Methadone Screen Negative, Ur Barbituates Screen Negative, Ur Phencyclidine Scrn Negative, Ur Amphetamines Screen Negative, U Benzodiazepines Scrn Negative, Urine Cocaine Screen Negative, U Marijuana (THC) Screen Negative Orders (Tests/Meds): ED MEDICATIONS Generic Name Dose Route Start Last Admin Trade Name Freq PRN Reason Stop Dose Admin Acetaminophen 650 mg 07/16/23 15:39 Acetaminophen 325mg Tab PO 08/15/23 15:38 Q4HP PRN Fever or Mild Pain (1-3) Heparin Sodium (Porcine) 5,000 unit 07/16/23 15:45 Heparin Sodium 5,000 Unit/Ml Vial SQ 08/15/23 15:44 Q8H MOMO Sodium Chloride 1,000 mls @ 50 mls/hr 07/16/23 15:45 Sod Chlor 0.9% 1000ml Bag IV 08/15/23 15:44 .Q20H MOMO Ondansetron HCl 4 mg 07/16/23 15:39 Ondansetron 4mg/2ml Vial IV 08/15/23 15:38 Q8HP PRN Nausea Discontinued Medications Generic Name Dose Route Start Last Admin Trade Name Freq PRN Reason Stop Dose Admin Lactated Ringer's 1,000 mls @ 999 mls/hr 07/16/23 14:12 07/16/23 14:34 Lactated Ringer's 1000 Ml Bag IV 07/16/23 15:12 999 mls/hr .Q1H1M ONE Administration ORDERS Category Date Time Status Acetone, Serum (Rapid) Stat Lab 07/16/23 14:28 Completed BNP [NT Pro Brain Natriuretic Pep.] Stat Lab 07/16/23 14:28 Completed Basic Metabolic Panel AMLAB Lab 07/17/23 06:00 Ordered Basic Metabolic Panel AMLAB Lab 07/18/23 06:00 Ordered Basic Metabolic Panel AMLAB Lab 07/19/23 06:00 Ordered Basic Metabolic Panel AMLAB Lab 07/20/23 06:00 Ordered CBC w/Auto Diff [Complete Blood Count Auto Diff] Stat Lab 07/16/23 14:28 Completed CMP [Comprehensive Metabolic Panel] Stat Lab 07/16/23 14:28 Completed Complete Blood Count Auto Diff AMLAB Lab 07/17/23 06:00 Ordered Complete Blood Count Auto Diff AMLAB Lab 07/18/23 06:00 Ordered Complete Blood Count Auto Diff AMLAB Lab 07/19/23 06:00 Ordered Complete Blood Count Auto Diff AMLAB Lab 07/20/23 06:00 Ordered Magnesium Stat Lab 07/16/23 14:28 Completed Rapid PCR Covid and Flu A/B Stat Lab 07/16/23 14:20 Completed TSH [Thyroid Stimulating Hormone] Stat Lab 07/16/23 14:28 Completed Trop I [Troponin I] Stat Lab 07/16/23 14:28 Completed UA [Urinalysis and Microscopic] Stat Lab 07/16/23 14:52 Completed UDS [Drug Screen,Urine] Stat Lab 07/16/23 14:52 Completed VBG [Venous Blood Gas] Stat RT 07/16/23 14:30 Completed Medical Decision Narrative: In summary patient is a 78-year-old female who presents to the emergency department for evaluation of acute confusion. Patient is stable upon arrival, afebrile. Physical exam is remarkable for very petite cachectic appearing somnolent but arousable 78-year-old female who is oriented to person place but not circumstance. Breath sounds are clear and equal bilaterally heart sounds are normal no tenderness to palpation except dorsal spine which is a chronic issue. Differential diagnosis includes ACS versus stroke versus occult infection versus polypharmacy etc. Initial workup will be conducted with hematologic labs, twelve-lead EKG, plain film chest x-ray, urinalysis. Initial interventions include fluid bolus. Initial workup reviewed by me and shows a critically high BUN and creatinine. At that point I had an interactive discussion with the patient and the patient's family at the patient's bedside reviewing goals of care. Patient is able to state unequivocally that she does not want aggressive care including potential emergent dialysis or investigation to the causes. Family supports that this is her long stated wish. I then had an interactive discussion with a hospice office services representative that I evaluated the patient at her home today. Patient has not been officially accepted into hospice care and family is not prepared to take her home and provide her care as patient lives alone and they have no resources in place yet. At that point I had a interact discussion with hospital medicine at 1520 regarding patient management and possible admission. Hospital medicine asked if I had spoken with the social media sr strategy manager which I have not. He is going to reach out to show services in our facility and will call me back. [facility] medicine has agreed to admission for comfort care I was consulted by the AMMON, and we discussed the complexity of the problems being addressed. I approved the treatment and management plan for this patient?s care in the Emergency Department, thus performing a substantive portion of the medical decision making. Umberto Taylor MD Critical Care <IGGY Rod - Last Filed: 07/16/23 15:42> Critical Care Time Critical Care Time: No <Umberto Taylor MD - Last Filed: 07/16/23 16:04> Critical Care Time Critical Care Time: No
--- NOTE | 2023-07-16 14:23 | ECG_ITS ---
APPROVED REPORT Exam: Resting ECG HR:80 bpm ECG Measurements Heart Rate 80 AXES NC 183 P 87 QRSd 105 QRS -18 QT 376 T 195 QTc 412 Conclusion SINUS RHYTHM POSSIBLE INFERIOR MYOCARDIAL INFARCTION , OF INDETERMINATE AGE [30 ms Q WAVE IN II/aVF] MODERATE T-WAVE ABNORMALITY, CONSIDER ANTEROLATERAL ISCHEMIA [-0.1+ mV T-WAVE IN V3-V6] No significant changes noted from prior ECG. Electronically signed by : MEKA MERCADO, 07/16/2023 16:09:44
[2023-07-16 14:24] LABS: Coronavirus 19, PCR Not Detected (NotDetected); Influenza A, PCR Not Detected (NotDetected); Influenza B, PCR Not Detected (NotDetected)
--- NOTE | 2023-07-16 14:30 | PC.NURSE ---
Notified RT of VBG
[2023-07-16] MEDS: LACTATED RINGERS 1000ML 1,000 ML 999 ML IV (14:34)
[2023-07-16 14:39] LABS: Lactate Venous 1.7 mmol/L (0.4-2.0); VBG Base Excess -14.3 mmol/L (-2.4-2.3); VBG HCO3 12.8 mmol/L (23-30); VBG Oxygen Saturation 97.3 % (50-70); VBG PCO2 29.6 mmol/L (35-51); VBG PH 7.26 mmol/L (7.31-7.41); VBG PO2 101.1 mmol/L (28-40); VBG Total CO2 13.7 mmol/L (23-27)
[2023-07-16 14:43] LABS: Chloride 100 mmol/L (98-107); Potassium 3.9 mmoL/L (3.5-5.1); Sodium 136 mmol/L (136-145)
[2023-07-16 14:46] LABS: Alanine Aminotransferase 21 U/L (12-78); Albumin Level 4.5 g/dl (3.5-5.0); Alkaline Phosphatase 79 U/L (38-126); Anion Gap 26.9 mEq/L (5-15); Aspartate Amino Transferase 28 U/L (14-36); Bilirubin,Total 0.6 mg/dl (0.2-1.3); Calcium 9.1 mg/dl (8.4-10.2); Carbon Dioxide 13 mmol/L (22.0-30.0); Globulin 2.3 g/dL (1.3-3.2); Glucose 119 mg/dl (74-100); Magnesium 1.6 mg/dl (1.6-2.3); Total Protein,Serum 6.8 g/dl (6.3-8.2)
[2023-07-16 14:47] LABS: Basophils % 0.1 % (0.1-2.0); Eosinophils # 0.1 K/mm3 (0.0-0.4); Eosinophils % 0.3 % (0.1-12.0); Hemoglobin 12.7 g/dL (12.2-16.2); Lymphocytes # 0.7 K/mm3 (0.7-4.5); Lymphocytes % 3.5 % (10-50); Mean Corpuscular HGB Conc 31.7 g/dL (31.8-35.4); Mean Corpuscular Hemoglobin 32.3 pg (27.0-31.2); Mean Corpuscular Volume 101.8 fl (81-99); Mean Platelet Volume 8.7 fl (7.4-10.4); Monocytes # 0.4 K/mm3 (0.1-1.0); Monocytes % 2.1 % (1.7-9.3); Neutrophils # 19.4 K/mm3 (1.8-7.8); Platelet Count 240 K/mm3 (142-424); Red Blood Count 3.93 M/mm3 (4.20-5.40); Red Cell Distribution Width 18.1 % (11.5-17.5); White Blood Count 20.6 K/mm3 (4.8-10.8)
[2023-07-16 14:48] LABS: MANUAL DIFFERENTIAL MANUAL DIFFERENTIAL (MANUAL DIFF)
[2023-07-16 14:52] LABS: Creatinine Clearance Estimated 6 mL/min (50-200); Estimated Glomerular Filt Rate 9 ml/min (>60); GFR (African American) 11 ML/MIN (>60)
[2023-07-16 14:55] LABS: Blood Urea Nitrogen 108 mg/dl (7-17); NT Pro Brain Natriuretic Pep. 10300 pg/mL (0-450)
--- NOTE | 2023-07-16 14:55 | PC.NURSE ---
critical BUN-108 Creatinine-4.8 reported to IGGY Paz.
[2023-07-16 14:56] LABS: Microscopic, Urine URINE MICROSCOPIC (MICROSCOPIC)
[2023-07-16 14:57] LABS: Troponin I 0.09 ng/ml (0.00-0.034)
--- NOTE | 2023-07-16 15:08 | HMH.ITSTN ---
went to get patient for CT scan at this time, per Dr. Nicole not ready
[2023-07-16 15:13] LABS: Amphetamine/Metha Screen,Urine Negative ng/ml (<1000)
[2023-07-16 15:14] LABS: Acetone, Serum (Rapid) None Detected (None Detect)
[2023-07-16 15:14] LABS: Barbiturates Screen,Urine Negative ng/ml (<200)
[2023-07-16 15:15] LABS: Benzodiazepines Screen,Urine Negative ng/ml (<200); Cannabinoid Screen,Urine Negative ng/ml (<50)
[2023-07-16 15:16] LABS: Cocaine Screen,Urine Negative ng/ml (<300); Methadone Screen,Urine Negative ng/ml (<300)
[2023-07-16 15:16] LABS: Thyroid Stimulating Hormone 0.02 uIU/mL (0.465-4.68)
[2023-07-16 15:17] LABS: Opiate Screen,Urine Positive ng/ml (<300)
[2023-07-16 15:18] LABS: Phencyclidine Screen,Urine Negative ng/ml (<25)
[2023-07-16 15:20] LABS: Anisocytosis 1+; Lymphocytes % 7 % (10-50); Macrocytosis 1+; Monocytes % 1 % (2-9); Neutrophils % 91 % (42-76); Platelet Estimate Normal; Total Cells Counted 100
[2023-07-16 15:23] LABS: Appearance,Urine CLEAR (Clear); Blood, Urine Negative (Negative); Color,Urine YELLOW (Yellow); Glucose,Urine (UA) Negative (Negative); Ketones,Urine Negative (Negative); Leukocyte Esterase,Urine Negative (Negative); Nitrate,Urine Negative (Negative); Protein,Urine 1+ (Negative); Urobilinogen,Urine 0.2 EU/dl (0.2)
[2023-07-16 15:25] LABS: Bilirubin,Urine 1+ (Negative); Squamous Epithelial Cell,Urine Occasional #/hpf (0-5)
[2023-07-16 15:26] LABS: Amorphous Sediment,Urine Trace /lpf; Bacteria,Urine Trace /lpf
--- NOTE | 2023-07-16 16:41 | PC.NURSE ---
arrived by stretcher from ED
[2023-07-16] MEDS: 0.9 % SODIUM CHLORIDE 1000ML 1,000 ML 50 ML IV ×2 (16:52→17:02)
[2023-07-16] MEDS: HEPARIN SODIUM 5,000 UNIT/ML VIAL 5000 UNIT SQ ×2 (16:53→23:05)
--- NOTE | 2023-07-16 17:25 | P.HP_ITS ---
History of Present Illness *Admission Date: 07/16/23 *Reason for visit:: AMS *History of present illness: Patient is a 78-year-old female who presents to the hospital brought by family due to change in mental status. Patient is also being evaluated by hospice care at home, however patient has not been accepted into the hospice care. Patient is DNR, patient family is not interested in aggressive medical care including dialysis or any procedures. Patient is unable to provide history due to clinical condition. According to the patient family patient has not been able to take care of herself as well as has not been eating or drinking well. On further evaluation patient was noted to have creatinine of 4.8. [facility] Disclaimer: The information contained in this section may have been updated after the patient was seen, as this information can be updated by other users. Social History Smoking Status: Unknown if ever smoked alcohol intake: former counseling provided: provider counseling (Dr. Sheffield once again informed pt about bone healing while continuing to smoke) substance use type: denies use current occupational status: disabled Travel in the last 8 weeks: None household members: none housing: house Review of Systems Review of Systems Review of systems:: unable to obtain Meds Home Medications and Allergies Home Medications Medication Instructions Recorded Confirmed Type amlodipine 5 mg tablet 5 mg PO DAILY Hypertension 07/12/17 04/20/20 History aspirin 81 mg chewable tablet 81 mg PO DAILY HEART HEALTH 07/12/17 04/20/20 History cetirizine 10 mg capsule 10 mg PO DAILY Allergy symptoms 07/12/17 04/20/20 History duloxetine 30 mg capsule,delayed 30 mg PO DAILY Depression 07/12/17 04/20/20 History release bisoprolol 10 1 tab PO DAILY Hypertension 08/14/17 04/21/20 History mg-hydrochlorothiazide 6.25 mg tablet (Ziac) hydrocodone 10 mg-acetaminophen 1 - 2 tab PO TIDP PRN pain 08/14/17 04/21/20 History 325 mg tablet ([place]) calcium phosphate,dibasic 100 1 each PO DAILY Diet supplement 04/20/20 04/20/20 History mg-vitamin D3 3 mcg tablet ergocalciferol (vitamin D2) 1,250 50,000 units PO WEEKLY Diet 04/20/20 04/20/20 History mcg (50,000 unit) capsule supplement allopurinol 100 mg tablet 100 mg PO DAILY GOUT 04/21/20 04/21/20 History New Prescriptions to Start Prescriptions: Allergies Allergy/AdvReac Type Severity Reaction Status Date / Time ciprofloxacin [From Cipro] Allergy Intermediate I-RASH Verified 04/20/20 17:36 lisinopril Allergy Intermediate I-RASH, GI Verified 04/20/20 17:36 UPSET oxaprozin Allergy Intermediate I-RASH Verified 04/20/20 17:36 tramadol Allergy Intermediate HEADACHE Verified 04/20/20 17:36 venlafaxine Allergy Unknown Unknown Verified 04/20/20 17:36 allergy reaction Exam Data for Last 24 hours Vital signs and Labs for Last 24 Hours: Temp Pulse Resp BP Pulse Ox O2 Del Method 97.8 F 88 18 142/63 H 99 Room Air 07/16/23 17:00 07/16/23 17:00 07/16/23 17:00 07/16/23 17:00 07/16/23 17:00 07/16/23 17:00 Laboratory Results - last 24 hr 07/16/23 14:20: SARS-CoV-2 (PCR) Not detected, Influenza A Untype (PCR) Not detected, Influenza Type B (PCR) Not detected 07/16/23 14:28: WBC 20.6 H*, RBC 3.93 L, Hgb 12.7, Hct 40.0, MCV 101.8 H, MCH 32.3 H, MCHC 31.7 L, RDW 18.1 H, Plt Count 240, MPV 8.7, Neut % (Auto) 94.0 H, Lymph % (Auto) 3.5 L, Mck[place] % (Auto) 2.1, Eos % (Auto) 0.3, Baso % (Auto) 0.1, Neut # (Auto) 19.4 H, Lymph # (Auto) 0.7, Mck[place] # (Auto) 0.4, Eos # (Auto) 0.1, Baso # (Auto) 0.0, Total Counted 100, Neutrophils % (Manual) 91 H, Lymphocytes % (Manual) 7 L, Atypical Lymphs % 1.0, Monocytes % (Manual) 1 L, Platelet Estimate Normal, Anisocytosis 1+, Macrocytosis 1+, Sodium 136, Potassium 3.9, Chloride 100, Carbon Dioxide 13 L, Anion Gap 26.9 H, BUN 108 H*, Creatinine 4.80 H, Estimated Creat Clear 6, Estimated GFR 9 L*, Est GFR ( Amer) 11 L*, Glucose 119 H, Calcium 9.1, Magnesium 1.6, Total Bilirubin 0.6, AST 28, ALT 21, Alkaline Phosphatase 79, Troponin I 0.09 H, NT-Pro-B Natriuret Pep 74252 H, Total Protein 6.8, Albumin 4.5, Globulin 2.3, Albumin/Globulin Ratio 2.0 H, TSH 0.02 L, Acetone Level None detected 07/16/23 14:30: VBG pH 7.26 L, VBG pCO2 29.6 L, VBG pO2 101.1 H, VBG HCO3 12.8 L , VBG Total CO2 13.7 L, VBG O2 Saturation 97.3 H, VBG Base Excess -14.3 L, VBG Lactic Acid 1.7 07/16/23 14:52: Urine Color Yellow, Urine Appearance Clear, Urine pH 5.0, Ur Specific [place] 1.020, Urine Protein 1+, Urine Glucose (UA) Negative, Urine Ketones Negative, Urine Blood Negative, Urine Nitrate Negative, Urine Bilirubin 1+ A, Urine Urobilinogen 0.2, Ur Leukocyte Esterase Negative, Urine RBC None, Urine WBC None, Ur Squamous Epith Cells Occasional, Amorphous Sediment Trace, Urine Bacteria Trace, Urine Opiates Screen Positive H, Urine Methadone Screen Negative, Ur Barbituates Screen Negative, Ur Phencyclidine Scrn Negative, Ur Amphetamines Screen Negative, U Benzodiazepines Scrn Negative, Urine Cocaine Screen Negative, U Marijuana (THC) Screen Negative I & O for Last 24 hours: Intake & Output 07/13/23 07/14/23 07/15/23 07/16/23 23:59 23:59 23:59 23:59 Weight 44.679 kg Constitutional Constitutional: somnolent and obtunded *Routine HEENT Exam Head: Present normocephalic Eye: Present EOMI and PERRL ENT: Present mucous membranes moist *Routine Neck Exam Neck: Present supple; Absent lymphadenopathy *Routine Respiratory Exam Respiratory: Present CTA bilaterally *Routine Cardiovascular Exam Cardiovascular: Present RRR *Routine Abdominal Exam Abdominal: Present soft and normoactive bowel sounds; Absent tenderness *Routine Rectal Exam Rectal:: deferred *Routine Genitalia Exam Genitalia:: deferred *Routine Extremities Exam Extremities: Absent cyanosis, clubbing or edema *Routine Skin Exam Skin: Present warm; Absent rash *Routine Neurological Exam Comments: not following commands Assessment and Plan *Assessment and plan (1) Toxic metabolic encephalopathy: Status: Acute Category: Medical Code(s): G92.8 - Other toxic encephalopathy (2) Acute on chronic renal failure: Status: Acute Qualifiers: Acute renal failure type: unspecified Chronic kidney disease stage: unspecified stage Qualified Code(s): N17.9 - Acute kidney failure, unspecified; N18.9 - Chronic kidney disease, unspecified Category: Medical Code(s): N17.9 - Acute kidney failure, unspecified; N18.9 - Chronic kidney disease, unspecified (3) Uremia: Status: Acute Category: Medical Code(s): N19 - Unspecified kidney failure (4) Hypertension: Status: Chronic Qualifiers: Hypertension type: essential hypertension Qualified Code(s): I10 - Essential (primary) hypertension Category: Medical Code(s): I10 - Essential (primary) hypertension Plan Patient is a 78-year-old female who presents to the hospital brought by family due to change in mental status. Patient is also being evaluated by hospice care at home, however patient has not been accepted into the hospice care. Patient is DNR, patient family is not interested in aggressive medical care including dialysis or any procedures. Patient is unable to provide history due to clinical condition. According to the patient family patient has not been able to take care of herself as well as has not been eating or drinking well. On further evaluation patient was noted to have creatinine of 4.8. Assessment and plan Acute metabolic encephalopathy Suspect due to uremia Acute kidney injury Start gentle IV fluid therapy Monitor creatinine Monitor urine output Consult care management, consult hospice care Consult to speech therapy Patient's family is not interested in dialysis, creatinine on admission 4.8, BUN 102, last known creatinine 2021 - .9 UA checked-not suggestive of UTI Leukocytosis likely reactive Will start empirical antibiotics with cefepime Elevated troponin likely due to MIRANDA Family is interested in hospice care, will hold off of consulting cardiology at this time DVT prophylaxis-heparin
[2023-07-16] MEDS: CEFEPIME HCL 2 GM in 0.9 % SODIUM CHLORIDE 100 ML IV (18:46)
[2023-07-16] MEDS: HYDROCODONE 10MG/APAP 325MG TAB 1 TAB PO (18:47)
[2023-07-17] VITALS: BP 120/68; PULSE 86; RESP 18; TEMP 36.8; O2SAT 96
[2023-07-17] MEDS: CEFEPIME HCL 2 GM in 0.9 % SODIUM CHLORIDE 100 ML IV (01:54)
[2023-07-17 03:57] VITALS: BP 137/70; PULSE 85; RESP 18; TEMP 36.8; O2SAT 97; BMI 14.5
[2023-07-17 06:12] LABS: Basophils % 0.1 % (0.1-2.0); Eosinophils % 0.1 % (0.1-12.0); Hematocrit 38.8 % (37.0-47.0); Lymphocytes % 5.5 % (10-50); Mean Corpuscular Hemoglobin 31.7 pg (27.0-31.2); Mean Corpuscular Volume 102.4 fl (81-99); Mean Platelet Volume 9.9 fl (7.4-10.4); Monocytes # 0.7 K/mm3 (0.1-1.0); Monocytes % 3.6 % (1.7-9.3); Neutrophils # 16.5 K/mm3 (1.8-7.8); Neutrophils % 90.5 % (37.0-80.0); Platelet Count 229 K/mm3 (142-424); Red Blood Count 3.79 M/mm3 (4.20-5.40); Red Cell Distribution Width 18.2 % (11.5-17.5); White Blood Count 18.2 K/mm3 (4.8-10.8)
[2023-07-17 06:15] LABS: MANUAL DIFFERENTIAL MANUAL DIFFERENTIAL (MANUAL DIFF)
[2023-07-17 06:21] LABS: Calcium 8.8 mg/dl (8.4-10.2); Carbon Dioxide 16 mmol/L (22.0-30.0); Chloride 104 mmol/L (98-107); Creatinine Clearance Estimated 8 mL/min (50-200); Estimated Glomerular Filt Rate 10 ml/min (>60); GFR (African American) 12 ML/MIN (>60); Glucose 82 mg/dl (74-100); Sodium 138 mmol/L (136-145)
[2023-07-17 06:23] LABS: Blood Urea Nitrogen 99 mg/dl (7-17)
--- NOTE | 2023-07-17 06:24 | PC.NURSE ---
notified gris reardon of critical bun 99 and creatinine 4.2
[2023-07-17 06:30] LABS: Anion Gap 21.2 mEq/L (5-15); Potassium 3.2 mmoL/L (3.5-5.1)
[2023-07-17 07:46] LABS: Lymphocytes % 5 % (10-50); Monocytes % 1 % (2-9); Neutrophils % 94 % (42-76); Total Cells Counted 100
--- NOTE | 2023-07-17 07:53 | HMH.PHAINT1 ---
Pharmacy Intervention Comments: MEDICATION RECONCILIATION COMPLETED ON PATIENT USING EXTERNAL FILL HISTORY FROM PHARMACY. -FRANCESCO ELLSWORTH, MAZIND
[2023-07-17 07:54] VITALS: BP 140/71; PULSE 86; RESP 14; TEMP 36.6; O2SAT 98
[2023-07-17 07:58] LABS: Macrocytosis 1+; Platelet Estimate Normal
[2023-07-17] MEDS: HEPARIN SODIUM 5,000 UNIT/ML VIAL 5000 UNIT SQ (08:44)
--- NOTE | 2023-07-17 09:12 | SW/DCPLANNER ---
Addendum entered by Jacy Roque 07/17/23 10:45: [facility]oc[facility]nett/ [facility] stated that [facility] can accept patient today [facility] w/ Hospice. I will update Shelly bennett/ [facility] that patient will discharge to [facility] today. Addendum entered by Jacy Roque 07/17/23 09:48: Joceline bennett/ [facility] will be onsite to evaluate patient today. Original Note: I spoke w/ patient, her brother and Hospice nurse (Shelly). Patient and her brother are interested in LTC w/ Hospice services and are agreeable to private pay. Patient/brother are interested in a local facility. [facility] [place] donald/ [facility] does not currently have a bed available. I will fax patient information to [facility] and [facility]. I will follow up once information is reviewed. I have also faxed all updated information to Shelbie bennett/ [facility]. Discharge date is unknown at this time. I will continue to follow up w/ facilities and Hospice.
--- NOTE | 2023-07-17 10:04 | HMH.SLDYSPHA ---
Speech & Language Evaluation Speech/Language Dysphagia Evaluation Start: 07/17/23 09:39 Freq: ONCE Status: Active Protocol: Document 07/17/23 09:40 ELIN (Rec: 07/17/23 09:58 ECLARK Laptop) Co-signed By ST [place] Dysphagia Assess/Goals/Plan Assessment Date of Evaluation: 07/17/23 Evaluation Type Initial Certification Assessment/Problems Dysphagia per MD order Does Patient Qualify for Service Yes Qualify/Failure Comment Based on clinical observations made throughout the bedside swallow evaluation, Mrs. tsang would benefit from a follow-up by skilled speech therapy services for diet texture analysis/diet tolerance 2' downgraded diet. Recommendations PHYSICIAN CERTIFICATION: The specified therapy services are required, authorized, and reviewed every 30 days. Pt will be seen # times/week 1 for # weeks 4 Diet Recommendations Mechanical Soft Liquid Type Recommendations Normal/Thin SL Swallow Guidelines Assist w/all meals,Alt bite w/ sip thru meal,Standard Aspiration Prec.,Chk mough for pocketing,Crush meds as allowed*,Eat at slow rate,Oral Care Education,Oral care pre/ post meals Crush Meds Crush all meds Dysphagia Swallow Precautions/Strategies Sitting Upright (90 deg),Small Bites and Sips,Alternate Liquids/Solids Additional Consults Recommended Nutritional Consult Comment Need for supplemental shakes at meals 2' poor PO intake Plan Pt/Guardian verbally ack understanding Yes of dx/prognosis/goals Pt/Guardian verbally ack understanding Yes of/consent to tx prog G -code Required No Education Instructions provided Discussed results of CSE, diet recommendations, compensatory strategies, and aspiration precautions with pt and family , nursing, and care management all of which expressed understanding. Pt/Caregiver able to recall information Able to recall/restate Reinforcement needed No Speech & Language HPI History Present Illness Description of Patient Problem CUTTING DEPARTMENT SUPERVISOR pulled the following information from H&P, Patient is a 78-year-old female who presents to the hospital brought by family due to change in mental status. Patient is also being evaluated by hospice care at home, however patient has not been accepted into the hospice care. Patient is DNR, patient family is not interested in aggressive medical care including dialysis or any procedures. Patient is unable to provide history due to clinical condition. According to the patient family patient has not been able to take care of herself as well as has not been eating or drinking well. On further evaluation patient was noted to have creatinine of 4.8. Pt/Caregiver Concerns Family reports poor PO intake General Information General Current Food Consistancy Regular,Thin Liquids Dentition Upper & Lower Dentures Ability to Follow Directions Fair Communication Ability Moderate Impairment Dysphagia:Food Presentation Evaluation Food Type Pureed,Mechanical Soft,Liquid, Pudding Normal/Thin Liquid Response Multiple swallow attempts Pudding Consistency Liquid Response Multiple swallow attempts, Residual on tongue,Coughing after swallow Dysphagia Evaluation Pureed Food Multiple swallow attempts, Behavior Response Coughing after swallow Dysphagia Evaluation Mechanical Soft Difficulty chewing,Multiple Food Behavior Response swallow attempts,Coughing after swallow Dysphagia Evaluation Summary Pt was seen sitting upright at bedside for CSE. Pt first presented with x3 trials of ice chips. Pt demonstrated coughing on x1 trial, suspect 2' to pt attention as pt was talking while swallowing. No s /sxs of overt aspiration on other trials of ice chips. Pt presented with teaspoons of thin liquid, to which pt exhibited no overt aspiration s/sx. Pt presented with trials of thin via cup, to which pt exhibited no overt aspiration s/sx. Pt presented with pudding for x2 trials, to which pt exhibited multiple swallows, residue, and delayed coughing on x1 trial. Pt presented with applesauce for x2 trials, to which pt exhibited multiple swallows on all trials and a delayed cough on x1 trial. Pt was then presented with mech soft cereal bar for x1 trial, where pt exhibited inefficient and discoordinated mastication, oral residue, multiple swallows, and a delayed cough. Pt required a trial of pureed to clear residue. Due to these clinical observations found throughout swallow evaluation, pt would benefit from downgraded diet of mechanical soft ground with thin liquids, as well as as an implementation of puree/thin liquid wash, as well as supplemental shake to ensure caloric intake following nutritional consult. CUTTING DEPARTMENT SUPERVISOR will f/u for diet texture analysis and diet tolerance. Stroke Dysphagia Assessment PHYSICIAN CERTIFICATION: I certify the specified therapy services for Codi Tsang are required, authorized, and reviewed every 30 days.
--- NOTE | 2023-07-17 10:51 | EXP.DC.SUM ---
General Admission date:: 07/16/23 Discharge date: 07/17/23 HPI HPI HPI: Patient is a 78-year-old female who presents to the hospital brought by family due to change in mental status. Patient is also being evaluated by hospice care at home, however patient has not been accepted into the hospice care. Patient is DNR, patient family is not interested in aggressive medical care including dialysis or any procedures. Patient is unable to provide history due to clinical condition. According to the patient family patient has not been able to take care of herself as well as has not been eating or drinking well. On further evaluation patient was noted to have creatinine of 4.8. Hospital Course Hospital Course Hospital Course: Patient is a 78-year-old female who presents to the hospital brought by family due to change in mental status. Patient is also being evaluated by hospice care at home, however patient has not been accepted into the hospice care. Patient is DNR, patient family is not interested in aggressive medical care including dialysis or any procedures. Patient is unable to provide history due to clinical condition. According to the patient family patient has not been able to take care of herself as well as has not been eating or drinking well. On further evaluation patient was noted to have creatinine of 4.8. patient family is in hospice care and comfort care approach, patient is feeling better than yesterday, Hospice care was consulted and patient is enrolled in hospice per patient and family wishes, patient is discharged in stable condition, encouraged hydration. Exam Data for Last 24 hours Vital signs and Labs for Last 24 Hours: Temp Pulse Resp BP Pulse Ox O2 Del Method 97.8 F 86 14 140/71 98 Room Air 07/17/23 07:54 07/17/23 07:54 07/17/23 07:54 07/17/23 07:54 07/17/23 07:54 07/17/23 09:00 Laboratory Results - last 24 hr 07/16/23 14:20: SARS-CoV-2 (PCR) Not detected, Influenza A Untype (PCR) Not detected, Influenza Type B (PCR) Not detected 07/16/23 14:28: WBC 20.6 H*, RBC 3.93 L, Hgb 12.7, Hct 40.0, MCV 101.8 H, MCH 32.3 H, MCHC 31.7 L, RDW 18.1 H, Plt Count 240, MPV 8.7, Neut % (Auto) 94.0 H, Lymph % (Auto) 3.5 L, Fergus % (Auto) 2.1, Eos % (Auto) 0.3, Baso % (Auto) 0.1, Neut # (Auto) 19.4 H, Lymph # (Auto) 0.7, Fergus # (Auto) 0.4, Eos # (Auto) 0.1, Baso # (Auto) 0.0, Total Counted 100, Neutrophils % (Manual) 91 H, Lymphocytes % (Manual) 7 L, Atypical Lymphs % 1.0, Monocytes % (Manual) 1 L, Platelet Estimate Normal, Anisocytosis 1+, Macrocytosis 1+, Sodium 136, Potassium 3.9, Chloride 100, Carbon Dioxide 13 L, Anion Gap 26.9 H, BUN 108 H*, Creatinine 4.80 H, Estimated Creat Clear 6, Estimated GFR 9 L*, Est GFR ( Amer) 11 L*, Glucose 119 H, Calcium 9.1, Magnesium 1.6, Total Bilirubin 0.6, AST 28, ALT 21, Alkaline Phosphatase 79, Troponin I 0.09 H, NT-Pro-B Natriuret Pep 81841 H, Total Protein 6.8, Albumin 4.5, Globulin 2.3, Albumin/Globulin Ratio 2.0 H, TSH 0.02 L, Acetone Level None detected 07/16/23 14:30: VBG pH 7.26 L, VBG pCO2 29.6 L, VBG pO2 101.1 H, VBG HCO3 12.8 L, VBG Total CO2 13.7 L, VBG O2 Saturation 97.3 H, VBG Base Excess -14.3 L, VBG Lactic Acid 1.7 07/16/23 14:52: Urine Color Yellow, Urine Appearance Clear, Urine pH 5.0, Ur Specific Hudson 1.020, Urine Protein 1+, Urine Glucose (UA) Negative, Urine Ketones Negative, Urine Blood Negative, Urine Nitrate Negative, Urine Bilirubin 1+ A, Urine Urobilinogen 0.2, Ur Leukocyte Esterase Negative, Urine RBC None, Urine WBC None, Ur Squamous Epith Cells Occasional, Amorphous Sediment Trace, Urine Bacteria Trace, Urine Opiates Screen Positive H, Urine Methadone Screen Negative, Ur Barbituates Screen Negative, Ur Phencyclidine Scrn Negative, Ur Amphetamines Screen Negative, U Benzodiazepines Scrn Negative, Urine Cocaine Screen Negative, U Marijuana (THC) Screen Negative 07/17/23 05:59: WBC 18.2 H, RBC 3.79 L, Hgb 12.0 L, Hct 38.8, MCV 102.4 H, MCH 31.7 H, MCHC 31.0 L, RDW 18.2 H, Plt Count 229, MPV 9.9, Neut % (Auto) 90.5 H, Lymph % (Auto) 5.5 L, Fergus % (Auto) 3.6, Eos % (Auto) 0.1, Baso % (Auto) 0.1, Neut # (Auto) 16.5 H, Lymph # (Auto) 1.0, Fergus # (Auto) 0.7, Eos # (Auto) 0.0, Baso # (Auto) 0.0, Total Counted 100, Neutrophils % (Manual) 94 H, Lymphocytes % (Manual) 5 L, Monocytes % (Manual) 1 L, Platelet Estimate Normal, Macrocytosis 1+, Sodium 138, Potassium 3.2 L, Chloride 104, Carbon Dioxide 16 L, Anion Gap 21.2 H, BUN 99 H, Creatinine 4.20 H, Estimated Creat Clear 8, Estimated GFR 10 L*, Est GFR ( Amer) 12 L*, Glucose 82 D, Calcium 8.8 I & O for Last 24 hours: Intake & Output 07/14/23 07/15/23 07/16/23 07/17/23 23:59 23:59 23:59 23:59 Intake Total 120 / 370 250 / 250 Output Total 0 / 0 Balance 120 / 370 250 / 250 Weight 44.679 kg 43.454 kg Constitutional Constitutional: no acute distress *Routine HEENT Exam Head: Present normocephalic Eye: Present EOMI and PERRL ENT: Present mucous membranes moist *Routine Neck Exam Neck: Present supple; Absent lymphadenopathy *Routine Respiratory Exam Respiratory: Present CTA bilaterally *Routine Cardiovascular Exam Cardiovascular: Present RRR *Routine Abdominal Exam Abdominal: Present soft and normoactive bowel sounds; Absent tenderness *Routine Extremities Exam Extremities: Absent cyanosis, clubbing or edema *Routine Skin Exam Skin: Present warm; Absent rash *Routine Neurological Exam Neurological: Present alert and oriented X3 Results Data Completed and Pending Labs on day of discharge: Labs from last 24 hours 0507/16/23 07/16/23 05:59 14:52 14:30 WBC 18.2 H RBC 3.79 L Hgb 12.0 L Hct 38.8 MCV 102.4 H MCH 31.7 H MCHC 31.0 L RDW 18.2 H Plt Count 229 MPV 9.9 Neut % (Auto) 90.5 H Lymph % (Auto) 5.5 L Fergus % (Auto) 3.6 Eos % (Auto) 0.1 Baso % (Auto) 0.1 Neut # (Auto) 16.5 H Lymph # (Auto) 1.0 Fergus # (Auto) 0.7 Eos # (Auto) 0.0 Baso # (Auto) 0.0 Total Counted 100 Neutrophils % (Manual) 94 H Lymphocytes % (Manual) 5 L Atypical Lymphs % Monocytes % (Manual) 1 L Platelet Estimate Normal Anisocytosis Macrocytosis 1+ VBG pH 7.26 L VBG pCO2 29.6 L VBG pO2 101.1 H VBG HCO3 12.8 L VBG Total CO2 13.7 L VBG O2 Saturation 97.3 H VBG Base Excess -14.3 L VBG Lactic Acid 1.7 Sodium 138 Potassium 3.2 L Chloride 104 Carbon Dioxide 16 L Anion Gap 21.2 H BUN 99 H Creatinine 4.20 H Estimated Creat Clear 8 Estimated GFR 10 L* Est GFR ( Amer) 12 L* Glucose 82 D Calcium 8.8 Magnesium Total Bilirubin AST ALT Alkaline Phosphatase Troponin I NT-Pro-B Natriuret Pep Total Protein Albumin Globulin Albumin/Globulin Ratio TSH Urine Color Yellow Urine Appearance Clear Urine pH 5.0 Ur Specific Hudson 1.020 Urine Protein 1+ Urine Glucose (UA) Negative Urine Ketones Negative Urine Blood Negative Urine Nitrate Negative Urine Bilirubin 1+ A Urine Urobilinogen 0.2 Ur Leukocyte Esterase Negative Urine RBC None Urine WBC None Ur Squamous Epith Cells Occasional Amorphous Sediment Trace Urine Bacteria Trace Urine Opiates Screen Positive H Urine Methadone Screen Negative Ur Barbituates Screen Negative Ur Phencyclidine Scrn Negative Ur Amphetamines Screen Negative U Benzodiazepines Scrn Negative Urine Cocaine Screen Negative U Marijuana (THC) Screen Negative Acetone Level SARS-CoV-2 (PCR) Influenza A Untype (PCR) Influenza Type B (PCR) 07/16/23 07/16/23 14:28 14:20 WBC 20.6 H* RBC 3.93 L Hgb 12.7 Hct 40.0 MCV 101.8 H MCH 32.3 H MCHC 31.7 L RDW 18.1 H Plt Count 240 MPV 8.7 Neut % (Auto) 94.0 H Lymph % (Auto) 3.5 L Fergus % (Auto) 2.1 Eos % (Auto) 0.3 Baso % (Auto) 0.1 Neut # (Auto) 19.4 H Lymph # (Auto) 0.7 Fergus # (Auto) 0.4 Eos # (Auto) 0.1 Baso # (Auto) 0.0 Total Counted 100 Neutrophils % (Manual) 91 H Lymphocytes % (Manual) 7 L Atypical Lymphs % 1.0 Monocytes % (Manual) 1 L Platelet Estimate Normal Anisocytosis 1+ Macrocytosis 1+ VBG pH VBG pCO2 VBG pO2 VBG HCO3 VBG Total CO2 VBG O2 Saturation VBG Base Excess VBG Lactic Acid Sodium 136 Potassium 3.9 Chloride 100 Carbon Dioxide 13 L Anion Gap 26.9 H BUN 108 H* Creatinine 4.80 H Estimated Creat Clear 6 Estimated GFR 9 L* Est GFR ( Amer) 11 L* Glucose 119 H Calcium 9.1 Magnesium 1.6 Total Bilirubin 0.6 AST 28 ALT 21 Alkaline Phosphatase 79 Troponin I 0.09 H NT-Pro-B Natriuret Pep 46069 H Total Protein 6.8 Albumin 4.5 Globulin 2.3 Albumin/Globulin Ratio 2.0 H TSH 0.02 L Urine Color Urine Appearance Urine pH Ur Specific Hudson Urine Protein Urine Glucose (UA) Urine Ketones Urine Blood Urine Nitrate Urine Bilirubin Urine Urobilinogen Ur Leukocyte Esterase Urine RBC Urine WBC Ur Squamous Epith Cells Amorphous Sediment Urine Bacteria Urine Opiates Screen Urine Methadone Screen Ur Barbituates Screen Ur Phencyclidine Scrn Ur Amphetamines Screen U Benzodiazepines Scrn Urine Cocaine Screen U Marijuana (THC) Screen Acetone Level None detected SARS-CoV-2 (PCR) Not detected Influenza A Untype (PCR) Not detected Influenza Type B (PCR) Not detected DS: Diagnosis Discharge Diagnosis (1) Toxic metabolic encephalopathy: Status: Acute Code(s): G92.8 - Other toxic encephalopathy (2) Acute on chronic renal failure: Status: Acute Code(s): N17.9 - Acute kidney failure, unspecified; N18.9 - Chronic kidney disease, unspecified Qualifiers: Acute renal failure type: unspecified Chronic kidney disease stage: unspecified stage Qualified Code(s): N17.9 - Acute kidney failure, unspecified; N18.9 - Chronic kidney disease, unspecified (3) Uremia: Status: Acute Code(s): N19 - Unspecified kidney failure (4) Hypertension: Status: Chronic Code(s): I10 - Essential (primary) hypertension Qualifiers: Hypertension type: essential hypertension Qualified Code(s): I10 - Essential (primary) hypertension Meds Home Medications and Allergies Home Medications Medication Instructions Recorded Confirmed Type aspirin 81 mg chewable tablet 81 mg PO DAILY 07/12/17 07/17/23 History cetirizine 10 mg capsule 10 mg PO DAILY 07/12/17 07/17/23 History duloxetine 30 mg capsule,delayed 30 mg PO DAILY 07/12/17 07/17/23 History release calcium phosphate,dibasic 100 1 each PO DAILY 04/20/20 07/17/23 History mg-vitamin D3 3 mcg tablet ergocalciferol (vitamin D2) 1,250 50,000 units PO WEEKLY 04/20/20 07/17/23 History mcg (50,000 unit) capsule allopurinol 100 mg tablet 100 mg PO DAILY 04/21/20 07/17/23 History amlodipine 10 mg tablet 10 mg PO DAILY 07/17/23 07/17/23 History folic acid 1 mg tablet 1 mg PO DAILY 07/17/23 07/17/23 History hydrocodone 7.5 mg-acetaminophen 1 - 2 tab PO TIDP PRN Moderate 07/17/23 07/17/23 History 325 mg tablet Pain (Scale Score 5-6) New Prescriptions to Start Prescriptions: Allergies Allergy/AdvReac Type Severity Reaction Status Date / Time ciprofloxacin [From Cipro] Allergy Intermediate I-RASH Verified 04/20/20 17:36 lisinopril Allergy Intermediate I-RASH, GI Verified 04/20/20 17:36 UPSET oxaprozin Allergy Intermediate I-RASH Verified 04/20/20 17:36 tramadol Allergy Intermediate HEADACHE Verified 04/20/20 17:36 venlafaxine Allergy Unknown Unknown Verified 04/20/20 17:36 allergy reaction Discharge Plan Disposition Patient Disposition: Hospice - Medical Facility Condition: Fair Discharge Order Discharge Orders: Discharge Order (Routine); Ordered 07/17/23 Ordered By: Anabel Padron Follow up Plan Follow up with: Janice Brody, RN [Emergency Nurse] - Enter time for follow up Berna Jorgensen APRN [Primary Care Provider] - Enter time for follow up Prescriptions/Medication Reconciliation: Continued ergocalciferol (vitamin D2) 50,000 UNIT capsule 50,000 units PO WEEKLY Patient Comments: TAKE ONE CAPSULE BY MOUTH ONCE A WEEK calcium phos,dibas-vitamin D3 1 EACH tablet 1 each PO DAILY allopurinol 100 MG tablet 100 mg PO DAILY aspirin 81 MG tablet,chewable 81 mg PO DAILY duloxetine 30 MG capsule,delayed release(DR/EC) 30 mg PO DAILY cetirizine 10 MG capsule 10 mg PO DAILY amlodipine 10 mg tablet 10 mg PO DAILY Patient Comments: TAKE ONE TABLET BY MOUTH EVERY DAY hydrocodone-acetaminophen 7.5-325 mg tablet 1 - 2 tab PO TIDP PRN (Reason: Moderate Pain (Scale Score 5-6)) Patient Comments: TAKE 1 TO 2 TABLET(S) BY MOUTH THREE TIMES DAILY NEEDED UP TO 5 doses PER DAY MAY CAUSE DROWSINESS folic acid 1 mg tablet 1 mg PO DAILY Patient Comments: TAKE ONE TABLET BY MOUTH EVERY DAY Discontinued bisoprolol-hydrochlorothiazide [Ziac] 10-6.25 mg tablet 1 tab PO DAILY Problem Reconciliation Problems Reviewed?: Yes Patient Discharge Instructions ACTIVITY: Ambulate as tolerated DIET: continue same diet Patient Instructions: Acute Kidney Injury Providers Primary Care Provider: Berna Jorgensen Admit Provider: Anabel Padron Attending Provider: Anabel Padron
== END 2023-07-17 16:10 | disposition hospice, inpatient (51) | DRG 682 ==
LOC: ER 15:42 → 2ND 15:57
PROVIDERS: Physician Assistant; Admitting Provider Internal Medicine; Emergency Provider Emergency Medicine; PCP Nurse Practitioner Family; Visit Provider Internal Medicine
DX: N17.9 Acute kidney failure, unspecified (principal); G92.8 Other toxic encephalopathy; N18.9 Chronic kidney disease, unspecified; Z66 Do not resuscitate; Z51.5 Encounter for palliative care; I10 Essential (primary) hypertension
CPT/HCPCS: 36415; 80048; 80053; 80307; 81001; 82009; 82803; 83735; 83880; 84443; 84484; 85007; 85025; 87636; 92610; 93005; 99285; J7120